=== PATIENT | female | born 1980 | race Caucasian/White ===

== ENCOUNTER 2016-06-07 23:07 | Emergency (ER) | payer MEDICAID ==
[~2016-06-07] VITALS: Ht 162.6 cm; Wt 49.9 kg
[~2016-06-07 23:07] MED LIST: CITA-73 PO; CLON1TAB3 PO; TOPI25TA32 PO
[2016-06-08] MEDS ORDERED: ONDANSETRON HCL 4 MG/2 ML VIAL IV ONE
[2016-06-08 00:07] LABS: DEFINITIVE VIEW TRANSMISSION; Hematocrit 42.2 % (36.0-46.0); Hemoglobin 13.9 g/dL (12.2-16.2); Mean Corpuscular Hemoglobin 31.8 pg (28.0-32.0); Mean Corpuscular Hgb Conc. 32.9 g/dL (32.0-36.0); Mean Corpuscular Volume 96.7 fL (80.0-100.0); Mean Platelet Volume 8.2 fL (7.4-10.4); Platelet Count (auto) 198 10^3/uL (140-450); Red Cell Distribution Width 12.4 % (11.6-16.0); SUSPECT VIEW TRANSMISSION; White Blood Cell 7.5 10^3/uL (4.4-10.8)
[2016-06-08 00:27] LABS: Metamyelocytes % 0; Myelocytes % 0; Promyelocytes % 0; Reactive Lymphocytes 0
[2016-06-08 00:30] LABS: Albumin 2.8 g/dL (3.4-5.0); BUN/Creatinine Ratio 13.3; Bilirubin, Total 0.3 mg/dL (0.2-1.0); Total Protein 5.7 g/dL (6.4-8.2)
[2016-06-08 00:40] LABS: Potassium 2.5 mmol/L (3.5-5.1)
[2016-06-08] MEDS ORDERED: POTASSIUM CHL 20 Meq TABLET PO ONE (00:45)
[2016-06-08] MEDS ORDERED: KETOROLAC TROMETH 30 MG/ML 1ML VIAL IV ONE (00:45)
[2016-06-08] MEDS ORDERED: SODIUM CHLORIDE 0.9% 1,000 ML IV ONE (00:45)
[2016-06-08 01:41] LABS: Urine Bilirubin Negative (Negative); Urine Blood TRACE /uL (Negative); Urine Color Yellow (Yellow); Urine Glucose Normal (Normal); Urine Ketone Negative (Negative); Urine Mucus FEW (None Seen); Urine Nitrite Negative (Negative); Urine RBC 7 /hpf (0 - 4); Urine Squamous Epithelial Cell FEW /hpf (<5); Urine Urobilinogen Normal (Negative); Urine pH 6.5 (5.0-8.0)
[2016-06-08 01:45] VITALS: BP 114/56
[2016-06-08 02:18] LABS: Platelet Estimate Adequate; RBC Morphology Normal
[2016-06-08] MEDS ORDERED: HYDROmorphone HCL 2 MG/ML VL IV ONE ×2 (02:45→03:15)
== END 2016-06-08 03:34 | disposition home or self-care (01) ==
LOC: EDBD 23:07 → ER 23:26
DX: N20.0 Calculus of kidney (principal); N39.0 Urinary tract infection, site not specified; E87.6 Hypokalemia; Z88.1 Allergy status to other antibiotic agents; Z88.6 Allergy status to analgesic agent; Z90.710 Acquired absence of both cervix and uterus
CPT/HCPCS: 36415; 74176; 80053; 81001; 82150; 83690; 84702; 85007; 85027; 96361; 96374; 96375; 99285; J1170; J1885; J2405

== ENCOUNTER 2016-07-19 16:37 | Inpatient (IN) | payer MEDICAID ==
[~2016-07-19] VITALS: Ht 162.6 cm; Wt 59.0 kg
[2016-07-19] MEDS ORDERED: LORazepam 2MG/ML-1ML VIAL ONE (16:43)
[2016-07-19] MEDS ORDERED: SODIUM CHLORIDE 0.9% 1,000 ML IVB ONE (16:54)
[2016-07-19] MEDS ORDERED: LEVETIRACETAM INJ 1,000 MG in SODIUM CHL 0.9% 100 ML IV ONE (17:00)
[2016-07-19] MEDS ORDERED: LORazepam 2MG/ML-1ML VIAL IV ONE ×2 (17:00→17:30)
[2016-07-19 17:26] LABS: Basophils # (auto) 0 uL; Basophils % (auto) 0.6 % (0.0-2.0); Eosinophils # (auto) 0.2 uL; Eosinophils % (auto) 3.8 % (0.0-7.0); Hematocrit 41.7 % (36.0-46.0); Hemoglobin 14.1 g/dL (12.2-16.2); Lymphocytes # (auto) 2.7 uL; Lymphocytes % (auto) 41.6 % (10.0-50.0); Mean Corpuscular Hemoglobin 31.4 pg (28.0-32.0); Mean Corpuscular Hgb Conc. 33.8 g/dL (32.0-36.0); Mean Corpuscular Volume 92.7 fL (80.0-100.0); Mean Platelet Volume 8.1 fL (7.4-10.4); Monocytes # (auto) 0.5 uL; Monocytes % (auto) 7.6 % (0.0-12.0); Neutrophils % (auto) 46.4 % (37.0-80.0); Platelet Count (auto) 392 10^3/uL (140-450); Red Cell Distribution Width 13.7 % (11.6-16.0); White Blood Cell 6.6 10^3/uL (4.4-10.8)
[2016-07-19] MEDS ORDERED: MORPHINE SULFATE 4 MG/ML SYRG IV ONE (17:30)
[2016-07-19 17:46] LABS: Albumin 3.3 g/dL (3.4-5.0); BUN/Creatinine Ratio 11.2
[2016-07-19 17:49] LABS: Bilirubin, Total 0.4 mg/dL (0.2-1.0); Total Protein 6.9 g/dL (6.4-8.2)
[2016-07-19 17:54] LABS: Potassium 2.5 mmol/L (3.5-5.1)
[2016-07-19] MEDS ORDERED: POTASSIUM CHL 20MEQ/100ML 100 ML IV ONE (19:00)
[2016-07-19 19:05] LABS: Urine Blood Negative /uL (Negative); Urine Glucose Normal (Normal); Urine Hyaline Cast FEW /lpf (0 - 2); Urine Ketone Negative (Negative); Urine Mucus FEW (None Seen); Urine RBC 6 /hpf (0 - 4); Urine Squamous Epithelial Cell MOD /hpf (<5)
[2016-07-19 19:14] LABS: Urine Bilirubin 2+ (Negative); Urine Nitrite POSITIVE (Negative)
[2016-07-19 19:15] LABS: Urine Color Orange (Yellow)
[2016-07-19] MEDS ORDERED: LORazepam 2MG/ML-1ML VIAL IM PRN (19:17)
[2016-07-19] MEDS ORDERED: LEVOFLOXACIN 500MG 100 ML IV ONE (22:00)
[2016-07-19] MEDS ORDERED: LORazepam 2MG/ML-1ML VIAL IV PRN (22:00)
[2016-07-19] MEDS ORDERED: ACETAMINOPHEN 325 MG TAB PO PRN (22:00)
[2016-07-19] MEDS ORDERED: TEMAZEPAM 15 MG CAP PO PRN (22:00)
[2016-07-19] MEDS: LEVETIRACETAM 500 MG TAB PO SCH (23:31)
[2016-07-19] MEDS: clonazePAM 0.5 MG TAB PO SCH (23:31)
[2016-07-19] MEDS: FAMOTIDINE 20 MG TAB PO SCH (23:31)
[2016-07-19 23:32] VITALS: BP 95/68
[2016-07-20] VITALS (8 sets, daily range): BP systolic 63–120; BP diastolic 35–73
[2016-07-20] MEDS ORDERED: POTASSIUM CHLORIDE 40 MEQ, LIDOCAINE 1% (LOCAL ANESTH.) 4 ML in SODIUM CHL 0.9% 250 ML IV ONE (10:00)
[2016-07-20] MEDS: clonazePAM 0.5 MG TAB PO SCH ×2 (10:50→21:21)
[2016-07-20] MEDS: FAMOTIDINE 20 MG TAB PO SCH ×2 (10:50→21:22)
[2016-07-20] MEDS: LEVETIRACETAM 500 MG TAB PO SCH ×2 (10:50→21:20)
[2016-07-20] MEDS: POTASSIUM CHL 20 Meq TABLET PO SCH ×2 (10:51→21:21)
[2016-07-20] MEDS: HYDROcodone-ACET 10/325MG TAB PO PRN ×2 (10:53→15:00)
[2016-07-20 11:13] LABS: BUN/Creatinine Ratio 10.8; Calcium 7.9 mg/dL (8.5-10.1); Magnesium 2.4 mg/dL (1.6-2.6)
[2016-07-20 11:29] LABS: Potassium 2.9 mmol/L (3.5-5.1)
[2016-07-20] MEDS: LEVOFLOXACIN 500MG 100 ML IV SCH (15:00)
[2016-07-20] MEDS ORDERED: diphenhdrAMINE HCL 50 MG/1 ML VL IV ONE (17:30)
[2016-07-20] MEDS: ACETAMINOPHEN/CODEINE#3 (300/30mg) TAB PO PRN (22:15)
[2016-07-21] VITALS (7 sets, daily range): BP systolic 68–89; BP diastolic 36–50
[2016-07-21 06:10] LABS: Hematocrit 34.2 % (36.0-46.0); Hemoglobin 11.6 g/dL (12.2-16.2); Mean Corpuscular Hemoglobin 31.8 pg (28.0-32.0); Mean Corpuscular Volume 93.5 fL (80.0-100.0); Mean Platelet Volume 8.2 fL (7.4-10.4); Platelet Count (auto) 341 10^3/uL (140-450); Red Cell Distribution Width 13.8 % (11.6-16.0); White Blood Cell 5.3 10^3/uL (4.4-10.8)
[2016-07-21 06:27] LABS: Metamyelocytes % 0; Myelocytes % 0; Promyelocytes % 0; Reactive Lymphocytes 0
[2016-07-21 06:59] LABS: Albumin 2.4 g/dL (3.4-5.0); BUN/Creatinine Ratio 8.9; Bilirubin, Total 0.4 mg/dL (0.2-1.0); Calcium 7.9 mg/dL (8.5-10.1); Magnesium 2.4 mg/dL (1.6-2.6); Potassium 3.7 mmol/L (3.5-5.1); Total Protein 5.3 g/dL (6.4-8.2)
[2016-07-21] MEDS: ACETAMINOPHEN/CODEINE#3 (300/30mg) TAB PO PRN (08:37)
[2016-07-21] MEDS ORDERED: SOD CHL 0.45% 1,000 ML IV SCH ×2 (09:15→09:30)
[2016-07-21] MEDS: FAMOTIDINE 20 MG TAB PO SCH ×2 (09:40→21:34)
[2016-07-21] MEDS: clonazePAM 0.5 MG TAB PO SCH ×2 (09:41→22:00)
[2016-07-21] MEDS: POTASSIUM CHL 20 Meq TABLET PO SCH ×2 (09:43→21:34)
[2016-07-21] MEDS: LEVETIRACETAM 500 MG TAB PO SCH ×2 (09:44→21:36)
[2016-07-21] MEDS: LEVOFLOXACIN 500MG 100 ML IV SCH (09:46)
[2016-07-21] MEDS: HYDROmorphone HCL 2 MG/ML VL IV PRN ×4 (10:44→23:31)
[2016-07-21 14:57] LABS: Prothrombin Time 11.9 sec (9.37-12.3)
[2016-07-21] MEDS: ONDANSETRON HCL 4 MG/2 ML VIAL IV PRN (15:12)
[2016-07-21 15:17] LABS: Platelet Estimate Adequate
[2016-07-21 15:18] LABS: INR 1.16 (0.9-1.15)
[2016-07-21] MEDS: SOD CHL 0.45% 500 ML IV SCH ×2 (15:52→15:54)
[2016-07-21] MEDS: SOD CHL 0.45% 1,000 ML IV SCH (23:31)
[2016-07-22] VITALS (7 sets, daily range): BP systolic 65–82; BP diastolic 36–51
[2016-07-22] MEDS: HYDROmorphone HCL 2 MG/ML VL IV PRN ×4 (04:23→22:08)
[2016-07-22 06:43] LABS: Calcium 7.5 mg/dL (8.5-10.1)
[2016-07-22 06:46] LABS: BUN/Creatinine Ratio 7.2
[2016-07-22] MEDS ORDERED: IOHEXOL 350 MG/ML 100ML IJ ONE (07:18)
[2016-07-22] MEDS ORDERED: LIDOCAINE 2%HCL (LOCAL ANESTH.) INJ 20ML MDV ONE (07:18)
[2016-07-22] MEDS ORDERED: fentaNYL CITRATE 100 MCG/2 ML VL ONE (09:36)
[2016-07-22] MEDS ORDERED: MIDAZOLAM HCL 1MG/1ML-2 ML VIAL ONE (09:36)
[2016-07-22] MEDS: LEVOFLOXACIN 500MG 100 ML IV SCH (10:45)
[2016-07-22] MEDS: ONDANSETRON HCL 4 MG/2 ML VIAL IV PRN ×2 (10:45→17:12)
[2016-07-22] MEDS: clonazePAM 0.5 MG TAB PO SCH ×2 (11:17→22:50)
[2016-07-22] MEDS: LEVETIRACETAM 500 MG TAB PO SCH ×2 (11:17→22:50)
[2016-07-22] MEDS: POTASSIUM CHL 20 Meq TABLET PO SCH ×2 (11:17→22:50)
[2016-07-22] MEDS: FAMOTIDINE 20 MG TAB PO SCH ×2 (11:18→22:50)
[2016-07-22] MEDS: SOD CHL 0.45% 1,000 ML IV SCH (11:18)
[2016-07-23] MEDS: ONDANSETRON HCL 4 MG/2 ML VIAL IV PRN ×2 (03:07→09:19)
[2016-07-23] MEDS: HYDROmorphone HCL 2 MG/ML VL IV PRN ×5 (03:07→21:47)
[2016-07-23] MEDS: SOD CHL 0.45% 1,000 ML IV SCH ×2 (04:06→18:24)
[2016-07-23 05:00] VITALS: BP 71/43
[2016-07-23 05:48] LABS: Basophils # (auto) 0 uL; Basophils % (auto) 0.2 % (0.0-2.0); Eosinophils # (auto) 0.2 uL; Eosinophils % (auto) 2.8 % (0.0-7.0); Hematocrit 35.7 % (36.0-46.0); Hemoglobin 11.9 g/dL (12.2-16.2); Lymphocytes # (auto) 3.1 uL; Mean Corpuscular Hemoglobin 31.4 pg (28.0-32.0); Mean Corpuscular Hgb Conc. 33.2 g/dL (32.0-36.0); Mean Corpuscular Volume 94.8 fL (80.0-100.0); Mean Platelet Volume 8.4 fL (7.4-10.4); Monocytes # (auto) 0.3 uL; Monocytes % (auto) 5.8 % (0.0-12.0); Neutrophils # (auto) 2.2 uL; Neutrophils % (auto) 37.2 % (37.0-80.0); Platelet Count (auto) 300 10^3/uL (140-450); Red Cell Distribution Width 14.1 % (11.6-16.0); White Blood Cell 5.8 10^3/uL (4.4-10.8)
[2016-07-23 06:03] LABS: Albumin 2.3 g/dL (3.4-5.0); BUN/Creatinine Ratio 5.1; Bilirubin, Total 0.3 mg/dL (0.2-1.0); Calcium 7.7 mg/dL (8.5-10.1); Potassium 4.4 mmol/L (3.5-5.1); Total Protein 4.9 g/dL (6.4-8.2)
[2016-07-23 08:00] VITALS: BP 70/42
[2016-07-23] MEDS: FAMOTIDINE 20 MG TAB PO SCH ×2 (09:14→21:46)
[2016-07-23] MEDS: LEVETIRACETAM 500 MG TAB PO SCH ×2 (09:14→21:47)
[2016-07-23] MEDS: POTASSIUM CHL 20 Meq TABLET PO SCH ×2 (09:14→21:47)
[2016-07-23] MEDS: LEVOFLOXACIN 500MG 100 ML IV SCH (09:15)
[2016-07-23 10:00] VITALS: BP 59/33
[2016-07-23] MEDS: clonazePAM 0.5 MG TAB PO SCH ×2 (10:00→21:46)
[2016-07-23 14:14] VITALS: BP 76/44
[2016-07-23 16:58] VITALS: BP 70/42
[2016-07-23 19:17] LABS: BUN/Creatinine Ratio 5.8; Calcium 7.3 mg/dL (8.5-10.1); Potassium 4.5 mmol/L (3.5-5.1)
[2016-07-23 22:00] VITALS: BP 80/44
[2016-07-24 05:00] VITALS: BP 88/42
[2016-07-24] MEDS: HYDROmorphone HCL 2 MG/ML VL IV PRN ×3 (05:12→13:02)
[2016-07-24 07:09] LABS: Basophils # (auto) 0 uL; Basophils % (auto) 0.4 % (0.0-2.0); Eosinophils # (auto) 0.2 uL; Eosinophils % (auto) 3.6 % (0.0-7.0); Hematocrit 36.7 % (36.0-46.0); Hemoglobin 12.2 g/dL (12.2-16.2); Lymphocytes % (auto) 54.6 % (10.0-50.0); Mean Corpuscular Hemoglobin 31.6 pg (28.0-32.0); Mean Corpuscular Hgb Conc. 33.3 g/dL (32.0-36.0); Mean Corpuscular Volume 95.1 fL (80.0-100.0); Mean Platelet Volume 8.2 fL (7.4-10.4); Monocytes # (auto) 0.4 uL; Monocytes % (auto) 6.7 % (0.0-12.0); Neutrophils # (auto) 1.9 uL; Neutrophils % (auto) 34.7 % (37.0-80.0); Platelet Count (auto) 291 10^3/uL (140-450); Red Cell Distribution Width 13.6 % (11.6-16.0); White Blood Cell 5.4 10^3/uL (4.4-10.8)
[2016-07-24 08:00] VITALS: BP 81/44
[2016-07-24 08:50] VITALS: BP 71/44
[2016-07-24] MEDS: POTASSIUM CHL 20 Meq TABLET PO SCH (09:04)
[2016-07-24] MEDS: ONDANSETRON HCL 4 MG/2 ML VIAL IV PRN ×2 (09:04→13:02)
[2016-07-24] MEDS: clonazePAM 0.5 MG TAB PO SCH (09:05)
[2016-07-24] MEDS: SOD CHL 0.45% 1,000 ML IV SCH (09:05)
[2016-07-24] MEDS: LEVOFLOXACIN 500MG 100 ML IV SCH (09:05)
[2016-07-24] MEDS: FAMOTIDINE 20 MG TAB PO SCH (09:05)
[2016-07-24] MEDS: LEVETIRACETAM 500 MG TAB PO SCH (09:05)
[2016-07-24 12:40] VITALS: BP 122/69
[2016-07-24 14:55] VITALS: BP 79/47
== END 2016-07-24 16:22 | disposition home or self-care (01) | DRG 53 ==
LOC: EDBD 16:37 → ER 16:37 → CENTRAL 16:38
PROVIDERS: ADMIT Internal Medicine; ATTEND Internal Medicine
PROC: 0T933ZZ Drainage of Right Kidney Pelvis, Percutaneous Approach (ICD-10-PCS; principal; 2016-07-22)
DX: G40.409 Other generalized epilepsy and epileptic syndromes, not intractable, without status epilepticus (principal); E87.0 Hyperosmolality and hypernatremia; N13.2 Hydronephrosis with renal and ureteral calculous obstruction; N39.0 Urinary tract infection, site not specified; E87.6 Hypokalemia; F41.8 Other specified anxiety disorders; F41.9 Anxiety disorder, unspecified; Z80.0 Family history of malignant neoplasm of digestive organs; Z82.49 Family history of ischemic heart disease and other diseases of the circulatory system; Z93.6 Other artificial openings of urinary tract status; F32.9 Major depressive disorder, single episode, unspecified; R63.4 Abnormal weight loss; Z68.22 Body mass index [BMI] 22.0-22.9, adult; Z87.442 Personal history of urinary calculi; Z90.710 Acquired absence of both cervix and uterus; Z96.653 Presence of artificial knee joint, bilateral; Z72.0 Tobacco use; Z81.8 Family history of other mental and behavioral disorders; Z83.42 Family history of familial hypercholesterolemia; Z88.1 Allergy status to other antibiotic agents; Z88.5 Allergy status to narcotic agent
CPT/HCPCS: 36415; 74176; 76000; 76775; 76942; 80048; 80053; 81001; 83735; 85007; 85025; 85027; 85610; 87081; 87086; 96361; 96365; 96366; 96375; 96376; C1729; G0434; J1956; J2001; J2250; J2405; J3480

== ENCOUNTER 2016-07-27 11:44 | Inpatient (IN) | payer MEDICAID ==
[~2016-07-27] VITALS: Ht 162.6 cm; Wt 49.6 kg
[2016-07-27] MEDS ORDERED: SODIUM CHLORIDE 0.9% 1,000 ML IVB ONE ×2 (12:08→12:50)
[2016-07-27] MEDS ORDERED: ONDANSETRON HCL 4 MG/2 ML VIAL IV ONE (12:15)
[2016-07-27 12:59] LABS: Basophils # (auto) 0 uL; Basophils % (auto) 0.1 % (0.0-2.0); Eosinophils # (auto) 0.1 uL; Eosinophils % (auto) 1.9 % (0.0-7.0); Hematocrit 36.9 % (36.0-46.0); Hemoglobin 12.1 g/dL (12.2-16.2); Lymphocytes # (auto) 1.8 uL; Lymphocytes % (auto) 37.3 % (10.0-50.0); Mean Corpuscular Hemoglobin 31.4 pg (28.0-32.0); Mean Corpuscular Hgb Conc. 32.9 g/dL (32.0-36.0); Mean Corpuscular Volume 95.2 fL (80.0-100.0); Mean Platelet Volume 8.8 fL (7.4-10.4); Monocytes # (auto) 0.3 uL; Monocytes % (auto) 6.6 % (0.0-12.0); Neutrophils # (auto) 2.6 uL; Neutrophils % (auto) 54.1 % (37.0-80.0); Platelet Count (auto) 267 10^3/uL (140-450); Red Cell Distribution Width 13.9 % (11.6-16.0); White Blood Cell 4.8 10^3/uL (4.4-10.8)
[2016-07-27] MEDS ORDERED: MORPHINE SULF INJ 2 MG/ML SYRINGE 1ML IV ONE (13:00)
[2016-07-27 13:38] LABS: Albumin 2.6 g/dL (3.4-5.0); BUN/Creatinine Ratio 9.5; Calcium 7.7 mg/dL (8.5-10.1); Potassium 3.2 mmol/L (3.5-5.1)
[2016-07-27] MEDS ORDERED: PROMETHAZINE HCL 25 MG/ML 1ML ONE (13:40)
[2016-07-27 13:41] LABS: Bilirubin, Total 0.2 mg/dL (0.2-1.0); Total Protein 5.7 g/dL (6.4-8.2)
[2016-07-27] MEDS ORDERED: PROMETHAZINE HCL 25 MG/ML 1ML IV ONE (13:45)
[2016-07-27 13:50] LABS: INR 1.07 (0.9-1.15); Partial Thromboplastin Time 29.4 sec (22.64-33.71)
[2016-07-27] MEDS ORDERED: SODIUM CHLORIDE 0.9% 2,000 ML IV ONE (14:45)
[2016-07-27] MEDS ORDERED: HYDROcodone-ACET 5/325MG TAB PO PRN (14:45)
[2016-07-27] MEDS ORDERED: LORazepam 0.5 MG TAB PO PRN (14:45)
[2016-07-27] MEDS ORDERED: MORPHINE SULF INJ 2 MG/ML SYRINGE 1ML IV PRN (14:45)
[2016-07-27] MEDS ORDERED: TEMAZEPAM 15 MG CAP PO PRN (14:45)
[2016-07-27] MEDS ORDERED: ACETAMINOPHEN 500 MG TAB PO PRN (14:45)
[2016-07-27] MEDS: SODIUM CHLORIDE 0.9% 1,000 ML IV SCH ×2 (14:45→22:09)
[2016-07-27] MEDS ORDERED: LEVOFLOXACIN 500MG 100 ML IV ONE (15:00)
[2016-07-27] MEDS ORDERED: MIRT15TA3 PO (15:11)
[2016-07-27] MEDS ORDERED: LEVE500T22 PO (15:12)
[2016-07-27] MEDS ORDERED: HYDROmorphone HCL 2 MG/ML VL ONE (16:00)
[2016-07-27] MEDS: HYDROmorphone HCL 2 MG/ML VL IV PRN ×2 (16:09→22:38)
[2016-07-27 16:12] LABS: Urine Bilirubin Negative (Negative); Urine Color Yellow (Yellow); Urine Glucose TRACE mg/dL (Normal); Urine Hyaline Cast FEW /lpf (0 - 2); Urine Ketone Negative (Negative); Urine Mucus FEW (None Seen); Urine Nitrite Negative (Negative); Urine RBC 79 /hpf (0 - 4); Urine Urobilinogen Normal (Negative); Urine pH 5.5 (5.0-8.0)
[2016-07-27 16:25] LABS: Urine Blood 3+ /uL (Negative)
[2016-07-27] MEDS ORDERED: SODIUM CHLORIDE 0.9% 1,000 ML IV ONE (17:00)
[2016-07-27] MEDS ORDERED: POTASSIUM CHL 20 Meq TABLET PO ONE (18:45)
[2016-07-27 20:00] VITALS: BP 94/52
[2016-07-27] MEDS: PROMETHAZINE HCL 25 MG/ML 1ML IV PRN (20:33)
[2016-07-27] MEDS: FAMOTIDINE 20 MG TAB PO SCH (22:09)
[2016-07-27] MEDS: clonazePAM 0.5 MG TAB PO SCH (22:33)
[2016-07-27] MEDS: MIRTAZAPINE 30 MG TAB PO SCH (22:33)
[2016-07-27] MEDS: LEVETIRACETAM 500 MG TAB PO SCH (22:34)
[2016-07-28] VITALS (7 sets, daily range): BP systolic 70–115; BP diastolic 42–51
[2016-07-28] MEDS: SODIUM CHLORIDE 0.9% 1,000 ML IV SCH ×2 (04:13→15:00)
[2016-07-28] MEDS ORDERED: ALBUMIN 5% 250 ML IV ONE (05:00)
[2016-07-28] MEDS: HYDROmorphone HCL 2 MG/ML VL IV PRN (05:17)
[2016-07-28 05:33] LABS: DEFINITIVE VIEW TRANSMISSION; Hematocrit 32.9 % (36.0-46.0); Hemoglobin 10.7 g/dL (12.2-16.2); Mean Corpuscular Hemoglobin 31.2 pg (28.0-32.0); Mean Corpuscular Hgb Conc. 32.5 g/dL (32.0-36.0); Mean Corpuscular Volume 95.8 fL (80.0-100.0); Mean Platelet Volume 9.2 fL (7.4-10.4); Platelet Count (auto) 216 10^3/uL (140-450); Red Cell Distribution Width 14.3 % (11.6-16.0); White Blood Cell 4.6 10^3/uL (4.4-10.8)
[2016-07-28 05:50] LABS: Metamyelocytes % 0; Myelocytes % 0; Promyelocytes % 0; Reactive Lymphocytes 0
[2016-07-28 06:11] LABS: Albumin 2.2 g/dL (3.4-5.0); BUN/Creatinine Ratio 6.8; Bilirubin, Total 0.4 mg/dL (0.2-1.0); Calcium 7.3 mg/dL (8.5-10.1); Potassium 3.6 mmol/L (3.5-5.1); Total Protein 4.8 g/dL (6.4-8.2)
[2016-07-28] MEDS: clonazePAM 0.5 MG TAB PO SCH ×3 (06:44→22:59)
[2016-07-28 06:47] LABS: Platelet Estimate Adequate; RBC Morphology Normal
[2016-07-28] MEDS: LEVOFLOXACIN 500MG 100 ML IV SCH (10:30)
[2016-07-28] MEDS: FAMOTIDINE 20 MG TAB PO SCH ×2 (10:30→23:02)
[2016-07-28] MEDS: LEVETIRACETAM 500 MG TAB PO SCH ×2 (10:31→22:59)
[2016-07-28] MEDS ORDERED: IOHEXOL 300 MG/ML 100ML BOTTLE IJ ONE (11:16)
[2016-07-28] MEDS ORDERED: LIDOCAINE 2%HCL (LOCAL ANESTH.) INJ 20ML MDV ONE (11:16)
[2016-07-28] MEDS ORDERED: FLUMAZENIL 0.1 MG/ML INJ 10ML MDV IV ONE (11:52)
[2016-07-28] MEDS ORDERED: NALOXONE HCL 1MG/ML 2ML SYRINGE ONE (11:53)
[2016-07-28] MEDS ORDERED: MIDAZOLAM HCL 1MG/1ML-2 ML VIAL ONE (11:53)
[2016-07-28] MEDS ORDERED: fentaNYL CITRATE 100 MCG/2 ML VL ONE (12:11)
[2016-07-28] MEDS: HYDROcodone-ACET 5/325MG TAB PO PRN ×2 (13:11→23:28)
[2016-07-28] MEDS: MIRTAZAPINE 30 MG TAB PO SCH (23:01)
[2016-07-28] MEDS: POTASSIUM CHL 20 Meq TABLET PO SCH (23:05)
[2016-07-29] VITALS (7 sets, daily range): BP systolic 72–81; BP diastolic 42–51
[2016-07-29] MEDS: SODIUM CHLORIDE 0.9% 1,000 ML IV SCH ×2 (06:03→10:00)
[2016-07-29] MEDS: clonazePAM 0.5 MG TAB PO SCH ×2 (06:41→14:00)
[2016-07-29 07:24] LABS: Hematocrit 33.3 % (36.0-46.0); Hemoglobin 11.3 g/dL (12.2-16.2); Mean Corpuscular Hgb Conc. 34.1 g/dL (32.0-36.0); Mean Corpuscular Volume 93.9 fL (80.0-100.0); Mean Platelet Volume 8.7 fL (7.4-10.4); Platelet Count (auto) 216 10^3/uL (140-450); Red Cell Distribution Width 13.7 % (11.6-16.0); White Blood Cell 4.4 10^3/uL (4.4-10.8)
[2016-07-29 07:38] LABS: Metamyelocytes % 0; Myelocytes % 0; Promyelocytes % 0; Reactive Lymphocytes 0
[2016-07-29 07:53] LABS: Albumin 2.3 g/dL (3.4-5.0); BUN/Creatinine Ratio 4.9; Bilirubin, Total 0.3 mg/dL (0.2-1.0); Calcium 7.5 mg/dL (8.5-10.1); Potassium 4.1 mmol/L (3.5-5.1); Total Protein 4.7 g/dL (6.4-8.2)
[2016-07-29 08:03] LABS: Platelet Estimate Adequate; RBC Morphology Normal
[2016-07-29] MEDS: LEVOFLOXACIN 500MG 100 ML IV SCH (09:48)
[2016-07-29] MEDS: LEVETIRACETAM 500 MG TAB PO SCH (09:48)
[2016-07-29] MEDS: POTASSIUM CHL 20 Meq TABLET PO SCH (09:49)
[2016-07-29] MEDS: FAMOTIDINE 20 MG TAB PO SCH (09:49)
[2016-07-29] MEDS: PROMETHAZINE HCL 25 MG/ML 1ML IV PRN (14:19)
[2016-07-29] MEDS: HYDROcodone-ACET 5/325MG TAB PO PRN (14:53)
== END 2016-07-29 17:45 | disposition home or self-care (01) | DRG 466 ==
LOC: EDBD 11:44 → EDSEX 11:44 → ER 11:45 → TELE 11:46 → DOU IN ICU 18:36
PROVIDERS: ADMIT Internal Medicine; ATTEND Internal Medicine
PROC: 0T25X0Z Change Drainage Device in Kidney, External Approach (ICD-10-PCS; principal; 2016-07-28)
DX: T83.032A Leakage of nephrostomy catheter, initial encounter (principal); I95.9 Hypotension, unspecified; F03.90 Unspecified dementia, unspecified severity, without behavioral disturbance, psychotic disturbance, mood disturbance, and anxiety; N13.39 Other hydronephrosis; Z93.6 Other artificial openings of urinary tract status; Y83.8 Other surgical procedures as the cause of abnormal reaction of the patient, or of later complication, without mention of misadventure at the time of the procedure; E87.6 Hypokalemia; F32.9 Major depressive disorder, single episode, unspecified; F41.9 Anxiety disorder, unspecified; G40.909 Epilepsy, unspecified, not intractable, without status epilepticus; I10 Essential (primary) hypertension; E78.5 Hyperlipidemia, unspecified; Z88.1 Allergy status to other antibiotic agents; Y92.89 Other specified places as the place of occurrence of the external cause; Z87.442 Personal history of urinary calculi; Z80.0 Family history of malignant neoplasm of digestive organs; Z82.49 Family history of ischemic heart disease and other diseases of the circulatory system; Z90.710 Acquired absence of both cervix and uterus
CPT/HCPCS: 36415; 71010; 74176; 75984; 76000; 76775; 80053; 81001; 82150; 83690; 83735; 85007; 85025; 85027; 85610; 85730; 87040; 87081; 87086; 87493; 94761; 96374; 96375; J1956; J2250; J2405

== ENCOUNTER 2016-08-03 14:15 | Emergency (ER) | payer MEDICAID ==
[~2016-08-03] VITALS: Ht 162.6 cm; Wt 45.4 kg
[~2016-08-03 14:15] MED LIST changes: -CITA-73 PO; +LEVE500T22 PO; +MIRT15TA3 PO; -TOPI25TA32 PO
[2016-08-03 14:27] VITALS: BP 101/71
== END 2016-08-04 00:15 | disposition left against medical advice (07) ==
LOC: ER 14:15
DX: T85.638A Leakage of other specified internal prosthetic devices, implants and grafts, initial encounter (principal); Z53.21 Procedure and treatment not carried out due to patient leaving prior to being seen by health care provider

== ENCOUNTER 2016-08-04 10:28 | Emergency (ER) | payer MEDICAID ==
[~2016-08-04] VITALS: Ht 162.6 cm; Wt 45.4 kg
[2016-08-04 11:11] LABS: Basophils # (auto) 0 uL; Basophils % (auto) 0.4 % (0.0-2.0); Eosinophils # (auto) 0.2 uL; Eosinophils % (auto) 3.8 % (0.0-7.0); Hematocrit 42.1 % (36.0-46.0); Lymphocytes # (auto) 2.6 uL; Lymphocytes % (auto) 41.6 % (10.0-50.0); Mean Corpuscular Hemoglobin 31.2 pg (28.0-32.0); Mean Corpuscular Hgb Conc. 33.2 g/dL (32.0-36.0); Mean Corpuscular Volume 94.1 fL (80.0-100.0); Mean Platelet Volume 8.4 fL (7.4-10.4); Monocytes # (auto) 0.3 uL; Monocytes % (auto) 5.4 % (0.0-12.0); Neutrophils % (auto) 48.8 % (37.0-80.0); Platelet Count (auto) 298 10^3/uL (140-450); Red Cell Distribution Width 14.3 % (11.6-16.0); White Blood Cell 6.1 10^3/uL (4.4-10.8)
[2016-08-04 11:31] LABS: Albumin 3.5 g/dL (3.4-5.0); BUN/Creatinine Ratio 14.4; Bilirubin, Total 0.3 mg/dL (0.2-1.0); Calcium 8.9 mg/dL (8.5-10.1); Potassium 3.2 mmol/L (3.5-5.1); Total Protein 7.2 g/dL (6.4-8.2)
[2016-08-04 11:55] LABS: Urine Bilirubin Negative (Negative); Urine Color PINK (Yellow); Urine Glucose Normal (Normal); Urine Ketone Negative (Negative); Urine Mucus FEW (None Seen); Urine Nitrite Negative (Negative); Urine RBC 1181 /hpf (0 - 4); Urine Squamous Epithelial Cell MANY /hpf (<5); Urine Urobilinogen Normal (Negative)
[2016-08-04 12:19] LABS: Urine Blood 3+ /uL (Negative)
[2016-08-04] MEDS ORDERED: HYDROmorphone HCL 2 MG/ML VL IV ONE (13:30)
[2016-08-04] MEDS ORDERED: ONDANSETRON HCL 4 MG/2 ML VIAL IV ONE (13:30)
[2016-08-04] MEDS ORDERED: SODIUM CHLORIDE 0.9% 1,000 ML IV ONE (13:30)
[2016-08-04] MEDS ORDERED: IOHEXOL 300 MG/ML 100ML BOTTLE IJ ONE (13:53)
[2016-08-04 18:58] VITALS: BP 98/65
== END 2016-08-04 19:01 | disposition home or self-care (01) ==
LOC: ER 10:31
DX: N39.0 Urinary tract infection, site not specified (principal); T83.03 Leakage of urinary catheter; F17.210 Nicotine dependence, cigarettes, uncomplicated; Z88.1 Allergy status to other antibiotic agents; Z79.899 Other long term (current) drug therapy
CPT/HCPCS: 36415; 80053; 81001; 85025; 96361; 96374; 96375; 99285; J1170; J2405; J7030; Q9967

== ENCOUNTER 2016-08-25 16:27 | Inpatient (IN) | payer MEDICAID ==
[~2016-08-25] VITALS: Ht 162.6 cm; Wt 56.2 kg
[2016-08-25] MEDS ORDERED: ONDANSETRON HCL 4 MG/2 ML VIAL IV ONE ×2 (17:30→20:30)
[2016-08-25] MEDS ORDERED: SODIUM CHLORIDE 0.9% 1,000 ML IV ONE ×2 (17:30→19:45)
[2016-08-25] MEDS ORDERED: HYDROmorphone HCL 2 MG/ML VL IV ONE ×2 (17:30→20:30)
[2016-08-25 18:41] LABS: Basophils # (auto) 0 uL; Basophils % (auto) 0.5 % (0.0-2.0); Eosinophils # (auto) 0.2 uL; Eosinophils % (auto) 2.3 % (0.0-7.0); Hematocrit 40.8 % (36.0-46.0); Hemoglobin 13.6 g/dL (12.2-16.2); Lymphocytes # (auto) 2.8 uL; Lymphocytes % (auto) 41.6 % (10.0-50.0); Mean Corpuscular Hemoglobin 31.7 pg (28.0-32.0); Mean Corpuscular Hgb Conc. 33.3 g/dL (32.0-36.0); Mean Corpuscular Volume 95.1 fL (80.0-100.0); Mean Platelet Volume 8.6 fL (7.4-10.4); Monocytes # (auto) 0.4 uL; Monocytes % (auto) 5.3 % (0.0-12.0); Neutrophils # (auto) 3.4 uL; Neutrophils % (auto) 50.3 % (37.0-80.0); Platelet Count (auto) 270 10^3/uL (140-450); Red Cell Distribution Width 14.2 % (11.6-16.0); White Blood Cell 6.7 10^3/uL (4.4-10.8)
[2016-08-25 18:45] LABS: Albumin 3.3 g/dL (3.4-5.0); BUN/Creatinine Ratio 14.2; Calcium 8.5 mg/dL (8.5-10.1); Potassium 3.1 mmol/L (3.5-5.1)
[2016-08-25 18:47] LABS: Bilirubin, Total 0.3 mg/dL (0.2-1.0); Total Protein 6.7 g/dL (6.4-8.2)
[2016-08-25 19:13] LABS: Urine Bilirubin Negative (Negative); Urine Blood Negative /uL (Negative); Urine Color Yellow (Yellow); Urine Glucose Normal (Normal); Urine Ketone TRACE (Negative); Urine Mucus FEW (None Seen); Urine Nitrite Negative (Negative); Urine RBC 1 /hpf (0 - 4); Urine Squamous Epithelial Cell FEW /hpf (<5)
[2016-08-25] MEDS ORDERED: POTASSIUM CHL 10% (20 MEQ/15ML) ORAL SOLN PO ONE (20:30)
[2016-08-25] MEDS ORDERED: MORPHINE SULF INJ 2 MG/ML SYRINGE 1ML IV PRN (21:00)
[2016-08-25] MEDS ORDERED: NITROGLYCERIN 0.4 MG SL TAB SL PRN (21:00)
[2016-08-25] MEDS ORDERED: POTASSIUM CHL 20MEQ/100ML 100 ML IV SCH (21:30)
[2016-08-25] MEDS: SODIUM CHLORIDE 0.9% 1,000 ML IV SCH (21:57)
[2016-08-25] MEDS: LEVETIRACETAM 500 MG TAB PO SCH (22:05)
[2016-08-25] MEDS: TOPIRAMATE 25 MG TAB PO SCH (22:05)
[2016-08-25] MEDS: clonazePAM 0.5 MG TAB PO SCH (22:05)
[2016-08-25 22:15] VITALS: BP 94/54
[2016-08-25] MEDS ORDERED: POTASSIUM CHLORIDE 40 MEQ, LIDOCAINE 1% (LOCAL ANESTH.) 4 ML in SODIUM CHL 0.9% 250 ML IV ONE (22:15)
[2016-08-25 22:20] VITALS: BP 94/54
[2016-08-25] MEDS ORDERED: MIRTAZAPINE 30 MG TAB PO ONE (23:15)
[2016-08-25] MEDS ORDERED: MIRT30TA PO (23:15)
[2016-08-25] MEDS ORDERED: TOPI25TA32 PO (23:15)
[2016-08-26] MEDS: HYDROmorphone HCL 2 MG/ML VL IV PRN ×4 (01:05→22:32)
[2016-08-26 05:00] VITALS: BP 74/45
[2016-08-26 06:06] LABS: Mean Corpuscular Hgb Conc. 33.3 g/dL (32.0-36.0); Platelet Count (auto) 207 10^3/uL (140-450)
[2016-08-26 06:21] LABS: Hematocrit 33.4 % (36.0-46.0); Hemoglobin 11.1 g/dL (12.2-16.2); Mean Corpuscular Hemoglobin 31.8 pg (28.0-32.0); Mean Corpuscular Volume 95.6 fL (80.0-100.0); Red Cell Distribution Width 14.3 % (11.6-16.0); White Blood Cell 7.5 10^3/uL (4.4-10.8)
[2016-08-26] MEDS: PARoxetine 20 MG TAB PO SCH (06:27)
[2016-08-26 06:28] LABS: Metamyelocytes % 0; Myelocytes % 0; Promyelocytes % 0; Reactive Lymphocytes 0
[2016-08-26] MEDS: clonazePAM 0.5 MG TAB PO SCH ×3 (06:28→22:31)
[2016-08-26 06:29] LABS: Potassium 3.4 mmol/L (3.5-5.1)
[2016-08-26 06:33] LABS: Albumin 2.5 g/dL (3.4-5.0); BUN/Creatinine Ratio 14.3
[2016-08-26 06:54] LABS: Bilirubin, Total 0.1 mg/dL (0.2-1.0); Total Protein 4.9 g/dL (6.4-8.2)
[2016-08-26 06:55] LABS: Hypersegmented Neutrophils Present
[2016-08-26 06:56] LABS: Platelet Estimate Adequate; RBC Morphology Normal
[2016-08-26 09:00] VITALS: BP 84/42
[2016-08-26] MEDS ORDERED: LEVOFLOXACIN 500MG 100 ML IV SCH (10:00)
[2016-08-26] MEDS: LEVETIRACETAM 500 MG TAB PO SCH ×2 (10:15→22:30)
[2016-08-26] MEDS: TOPIRAMATE 25 MG TAB PO SCH ×2 (10:15→22:31)
[2016-08-26] MEDS: SODIUM CHLORIDE 0.9% 1,000 ML IV SCH (11:26)
[2016-08-26] MEDS: metroNIDAZOLE 500 MG TAB PO SCH ×3 (11:40→23:35)
[2016-08-26 13:00] VITALS: BP 80/50
[2016-08-26 16:42] VITALS: BP 79/44
[2016-08-26] MEDS: ONDANSETRON HCL 4 MG/2 ML VIAL IV PRN (17:29)
[2016-08-26] MEDS: BOOST 8 ounces PO SCH (17:52)
[2016-08-26] MEDS ORDERED: MIRTAZAPINE 30 MG TAB PO SCH (18:00)
[2016-08-26 22:00] VITALS: BP 83/45
[2016-08-26] MEDS: MIRTAZAPINE 30 MG TAB PO SCH (22:31)
[2016-08-27] VITALS (7 sets, daily range): BP systolic 63–84; BP diastolic 34–50
[2016-08-27] MEDS: SODIUM CHLORIDE 0.9% 1,000 ML IV SCH ×2 (03:40→16:01)
[2016-08-27] MEDS: HYDROmorphone HCL 2 MG/ML VL IV PRN ×4 (03:40→20:03)
[2016-08-27] MEDS: metroNIDAZOLE 500 MG TAB PO SCH ×3 (05:59→17:53)
[2016-08-27] MEDS: PARoxetine 20 MG TAB PO SCH (05:59)
[2016-08-27] MEDS: clonazePAM 0.5 MG TAB PO SCH ×3 (05:59→21:56)
[2016-08-27 06:38] LABS: Hematocrit 33.8 % (36.0-46.0); Hemoglobin 11.6 g/dL (12.2-16.2); Mean Corpuscular Hemoglobin 33.2 pg (28.0-32.0); Mean Corpuscular Hgb Conc. 34.5 g/dL (32.0-36.0); Mean Corpuscular Volume 96.1 fL (80.0-100.0); Mean Platelet Volume 9.1 fL (7.4-10.4); Platelet Count (auto) 196 10^3/uL (140-450); Red Cell Distribution Width 14.3 % (11.6-16.0)
[2016-08-27 06:42] LABS: Metamyelocytes % 0; Myelocytes % 0; Promyelocytes % 0; Reactive Lymphocytes 0
[2016-08-27 06:59] LABS: Potassium 3.5 mmol/L (3.5-5.1)
[2016-08-27 07:03] LABS: Albumin 2.3 g/dL (3.4-5.0); BUN/Creatinine Ratio 9.6; Calcium 7.1 mg/dL (8.5-10.1)
[2016-08-27 07:06] LABS: Bilirubin, Total 0.2 mg/dL (0.2-1.0); Total Protein 4.5 g/dL (6.4-8.2)
[2016-08-27 07:37] LABS: Platelet Estimate Adequate
[2016-08-27] MEDS: TOPIRAMATE 25 MG TAB PO SCH ×2 (09:37→21:58)
[2016-08-27] MEDS: LEVETIRACETAM 500 MG TAB PO SCH ×2 (09:37→21:56)
[2016-08-27] MEDS: BOOST 8 ounces PO SCH ×3 (10:49→17:53)
[2016-08-27] MEDS: VANCOMYCIN HCL 125MG/5ML ORAL SOL GT SCH ×2 (12:15→17:53)
[2016-08-27] MEDS: MIRTAZAPINE 30 MG TAB PO SCH (21:58)
[2016-08-28] VITALS (8 sets, daily range): BP systolic 69–113; BP diastolic 39–52
[2016-08-28] MEDS: VANCOMYCIN HCL 125MG/5ML ORAL SOL GT SCH ×5 (00:12→23:40)
[2016-08-28] MEDS: metroNIDAZOLE 500 MG TAB PO SCH ×5 (00:12→23:39)
[2016-08-28 05:47] LABS: BUN/Creatinine Ratio 5.4; Calcium 7.2 mg/dL (8.5-10.1); Potassium 3.7 mmol/L (3.5-5.1)
[2016-08-28 05:51] LABS: Basophils # (auto) 0 uL; Basophils % (auto) 0.3 % (0.0-2.0); Eosinophils # (auto) 0.4 uL; Eosinophils % (auto) 6.5 % (0.0-7.0); Hemoglobin 11.3 g/dL (12.2-16.2); Lymphocytes # (auto) 2.8 uL; Lymphocytes % (auto) 52.2 % (10.0-50.0); Mean Corpuscular Hemoglobin 32.1 pg (28.0-32.0); Mean Corpuscular Hgb Conc. 33.2 g/dL (32.0-36.0); Mean Corpuscular Volume 96.8 fL (80.0-100.0); Monocytes # (auto) 0.3 uL; Monocytes % (auto) 6.1 % (0.0-12.0); Neutrophils # (auto) 1.9 uL; Neutrophils % (auto) 34.9 % (37.0-80.0); Platelet Count (auto) 201 10^3/uL (140-450); Red Cell Distribution Width 13.9 % (11.6-16.0); White Blood Cell 5.4 10^3/uL (4.4-10.8)
[2016-08-28] MEDS: clonazePAM 0.5 MG TAB PO SCH ×3 (06:07→22:31)
[2016-08-28] MEDS: SODIUM CHLORIDE 0.9% 1,000 ML IV SCH (06:11)
[2016-08-28] MEDS: HYDROmorphone HCL 2 MG/ML VL IV PRN ×4 (06:41→21:12)
[2016-08-28] MEDS: PARoxetine 20 MG TAB PO SCH (06:41)
[2016-08-28] MEDS: BOOST 8 ounces PO SCH ×3 (08:10→18:19)
[2016-08-28] MEDS: ONDANSETRON HCL 4 MG/2 ML VIAL IV PRN ×2 (09:44→21:12)
[2016-08-28] MEDS: LEVETIRACETAM 500 MG TAB PO SCH ×2 (09:44→22:33)
[2016-08-28] MEDS: TOPIRAMATE 25 MG TAB PO SCH ×2 (09:44→22:32)
[2016-08-28] MEDS: SOD CHL 0.45% 1,000 ML IV SCH ×2 (16:53→23:39)
[2016-08-28] MEDS: MIRTAZAPINE 30 MG TAB PO SCH (22:32)
[2016-08-29] MEDS: HYDROmorphone HCL 2 MG/ML VL IV PRN ×5 (01:09→22:23)
[2016-08-29 05:01] VITALS: BP 71/40
[2016-08-29] MEDS: metroNIDAZOLE 500 MG TAB PO SCH ×2 (05:42→11:41)
[2016-08-29] MEDS: clonazePAM 0.5 MG TAB PO SCH ×3 (05:42→22:07)
[2016-08-29] MEDS: VANCOMYCIN HCL 125MG/5ML ORAL SOL GT SCH ×2 (05:43→11:42)
[2016-08-29 05:58] LABS: Basophils # (auto) 0 uL; Basophils % (auto) 0.6 % (0.0-2.0); Eosinophils # (auto) 0.3 uL; Eosinophils % (auto) 6.1 % (0.0-7.0); Hematocrit 35.2 % (36.0-46.0); Hemoglobin 11.5 g/dL (12.2-16.2); Lymphocytes % (auto) 54.8 % (10.0-50.0); Mean Corpuscular Hemoglobin 31.8 pg (28.0-32.0); Mean Corpuscular Hgb Conc. 32.8 g/dL (32.0-36.0); Mean Corpuscular Volume 97.1 fL (80.0-100.0); Mean Platelet Volume 8.9 fL (7.4-10.4); Monocytes # (auto) 0.3 uL; Monocytes % (auto) 5.1 % (0.0-12.0); Neutrophils # (auto) 1.8 uL; Neutrophils % (auto) 33.4 % (37.0-80.0); Platelet Count (auto) 213 10^3/uL (140-450); Red Cell Distribution Width 14.4 % (11.6-16.0); White Blood Cell 5.5 10^3/uL (4.4-10.8)
[2016-08-29 06:10] LABS: Albumin 2.1 g/dL (3.4-5.0); BUN/Creatinine Ratio 3.9; Calcium 7.1 mg/dL (8.5-10.1); Potassium 3.5 mmol/L (3.5-5.1)
[2016-08-29 06:18] LABS: Bilirubin, Total 0.1 mg/dL (0.2-1.0); Total Protein 4.2 g/dL (6.4-8.2)
[2016-08-29] MEDS: PARoxetine 20 MG TAB PO SCH (06:34)
[2016-08-29 08:00] VITALS: BP 82/44
[2016-08-29] MEDS: BOOST 8 ounces PO SCH ×3 (08:00→18:00)
[2016-08-29] MEDS: ONDANSETRON HCL 4 MG/2 ML VIAL IV PRN ×3 (08:05→22:23)
[2016-08-29 08:12] VITALS: BP 82/44
[2016-08-29] MEDS: SOD CHL 0.45% 1,000 ML IV SCH ×2 (08:15→16:15)
[2016-08-29] MEDS: LEVETIRACETAM 500 MG TAB PO SCH ×2 (09:21→22:07)
[2016-08-29] MEDS: TOPIRAMATE 25 MG TAB PO SCH ×2 (09:22→22:07)
[2016-08-29 12:20] VITALS: BP 69/37
[2016-08-29 16:54] VITALS: BP 77/43
[2016-08-29 21:46] VITALS: BP 74/42
[2016-08-29] MEDS: PANTOPRAZOLE 40 MG TAB PO SCH (22:08)
[2016-08-29] MEDS: MIRTAZAPINE 30 MG TAB PO SCH (22:08)
[2016-08-30] MEDS: SOD CHL 0.45% 1,000 ML IV SCH ×3 (00:13→16:34)
[2016-08-30 04:37] VITALS: BP 78/50
[2016-08-30] MEDS: HYDROmorphone HCL 2 MG/ML VL IV PRN ×5 (05:26→21:18)
[2016-08-30] MEDS: PARoxetine 20 MG TAB PO SCH (06:01)
[2016-08-30] MEDS: clonazePAM 0.5 MG TAB PO SCH ×3 (06:01→21:43)
[2016-08-30 06:40] LABS: Basophils # (auto) 0 uL; Basophils % (auto) 0.5 % (0.0-2.0); Eosinophils # (auto) 0.3 uL; Eosinophils % (auto) 4.6 % (0.0-7.0); Hematocrit 35.4 % (36.0-46.0); Hemoglobin 11.8 g/dL (12.2-16.2); Lymphocytes # (auto) 2.6 uL; Lymphocytes % (auto) 46.4 % (10.0-50.0); Mean Corpuscular Hemoglobin 31.8 pg (28.0-32.0); Mean Corpuscular Hgb Conc. 33.3 g/dL (32.0-36.0); Mean Corpuscular Volume 95.6 fL (80.0-100.0); Mean Platelet Volume 8.9 fL (7.4-10.4); Monocytes # (auto) 0.3 uL; Monocytes % (auto) 5.1 % (0.0-12.0); Neutrophils # (auto) 2.4 uL; Neutrophils % (auto) 43.4 % (37.0-80.0); Platelet Count (auto) 216 10^3/uL (140-450); Red Cell Distribution Width 13.9 % (11.6-16.0); White Blood Cell 5.6 10^3/uL (4.4-10.8)
[2016-08-30 06:50] LABS: Albumin 2.1 g/dL (3.4-5.0); Calcium 7.4 mg/dL (8.5-10.1); Potassium 3.5 mmol/L (3.5-5.1)
[2016-08-30 06:53] LABS: BUN/Creatinine Ratio 4.3
[2016-08-30 06:55] LABS: Bilirubin, Total 0.2 mg/dL (0.2-1.0); Total Protein 4.2 g/dL (6.4-8.2)
[2016-08-30 08:00] VITALS: BP 82/94
[2016-08-30] MEDS: BOOST 8 ounces PO SCH ×3 (08:00→17:48)
[2016-08-30] MEDS: PANTOPRAZOLE 40 MG TAB PO SCH (08:28)
[2016-08-30 08:55] VITALS: BP 85/53
[2016-08-30] MEDS: TOPIRAMATE 25 MG TAB PO SCH ×2 (09:14→21:44)
[2016-08-30] MEDS: LEVETIRACETAM 500 MG TAB PO SCH ×2 (09:14→21:43)
[2016-08-30] MEDS ORDERED: FECAL MICROBIOTA TRANSPLANTATION 30mL SUSPENSION NG ONE (10:00)
[2016-08-30] MEDS: ONDANSETRON HCL 4 MG/2 ML VIAL IV PRN ×2 (10:47→21:26)
[2016-08-30 13:00] VITALS: BP 79/42
[2016-08-30 17:00] VITALS: BP 75/43
[2016-08-30] MEDS: PRO-STAT 64 30ML PO SCH (17:48)
[2016-08-30] MEDS: MIRTAZAPINE 30 MG TAB PO SCH (21:44)
[2016-08-30 22:01] VITALS: BP 99/50
[2016-08-31] VITALS (7 sets, daily range): BP systolic 68–90; BP diastolic 36–59
[2016-08-31] MEDS: SOD CHL 0.45% 1,000 ML IV SCH ×4 (00:27→20:44)
[2016-08-31] MEDS: HYDROmorphone HCL 2 MG/ML VL IV PRN ×3 (05:02→17:54)
[2016-08-31 05:47] LABS: Calcium 7.7 mg/dL (8.5-10.1); Potassium 3.5 mmol/L (3.5-5.1)
[2016-08-31 05:50] LABS: BUN/Creatinine Ratio 3.9
[2016-08-31] MEDS: clonazePAM 0.5 MG TAB PO SCH ×3 (06:25→21:26)
[2016-08-31] MEDS: PARoxetine 20 MG TAB PO SCH (06:25)
[2016-08-31] MEDS: BOOST 8 ounces PO SCH ×3 (08:00→18:25)
[2016-08-31] MEDS: PRO-STAT 64 30ML PO SCH ×2 (08:00→18:24)
[2016-08-31] MEDS: TOPIRAMATE 25 MG TAB PO SCH ×2 (09:11→21:27)
[2016-08-31] MEDS: LEVETIRACETAM 500 MG TAB PO SCH ×2 (09:17→21:25)
[2016-08-31] MEDS: ONDANSETRON HCL 4 MG/2 ML VIAL IV PRN (16:20)
[2016-08-31] MEDS: MIRTAZAPINE 30 MG TAB PO SCH (21:31)
[2016-09-01] MEDS: HYDROmorphone HCL 2 MG/ML VL IV PRN ×3 (03:20→12:39)
[2016-09-01] MEDS: ONDANSETRON HCL 4 MG/2 ML VIAL IV PRN (03:21)
[2016-09-01] MEDS: SOD CHL 0.45% 1,000 ML IV SCH (05:13)
[2016-09-01 06:03] LABS: Hematocrit 35.2 % (36.0-46.0); Hemoglobin 11.5 g/dL (12.2-16.2); Mean Corpuscular Hemoglobin 31.5 pg (28.0-32.0); Mean Corpuscular Hgb Conc. 32.6 g/dL (32.0-36.0); Mean Corpuscular Volume 96.6 fL (80.0-100.0); Mean Platelet Volume 9.2 fL (7.4-10.4); Platelet Count (auto) 220 10^3/uL (140-450); Red Cell Distribution Width 14.7 % (11.6-16.0); White Blood Cell 4.8 10^3/uL (4.4-10.8)
[2016-09-01] MEDS: clonazePAM 0.5 MG TAB PO SCH (06:04)
[2016-09-01] MEDS: PARoxetine 20 MG TAB PO SCH (06:04)
[2016-09-01 06:12] LABS: Metamyelocytes % 0; Myelocytes % 0; Promyelocytes % 0; Reactive Lymphocytes 0
[2016-09-01 06:25] LABS: Albumin 2.2 g/dL (3.4-5.0); BUN/Creatinine Ratio 4.2; Calcium 7.7 mg/dL (8.5-10.1); Potassium 3.6 mmol/L (3.5-5.1)
[2016-09-01 06:28] LABS: Bilirubin, Total 0.2 mg/dL (0.2-1.0); Total Protein 4.4 g/dL (6.4-8.2)
[2016-09-01 06:48] LABS: Platelet Estimate Adequate; RBC Morphology Normal
[2016-09-01 08:00] VITALS: BP 90/49
[2016-09-01] MEDS: PRO-STAT 64 30ML PO SCH (08:37)
[2016-09-01] MEDS: BOOST 8 ounces PO SCH ×2 (08:37→12:25)
[2016-09-01 09:00] VITALS: BP 90/49
[2016-09-01] MEDS: LEVETIRACETAM 500 MG TAB PO SCH (09:36)
[2016-09-01] MEDS: TOPIRAMATE 25 MG TAB PO SCH (09:36)
[2016-09-01 11:50] VITALS: BP 78/40
== END 2016-09-01 13:10 | disposition home or self-care (01) | DRG 248 ==
LOC: ER 16:29 → TELE-WESTW 16:30
PROVIDERS: ADMIT Internal Medicine; ATTEND Internal Medicine
DX: A04.7 Enterocolitis due to Clostridium difficile (principal); E43 Unspecified severe protein-calorie malnutrition; F03.90 Unspecified dementia, unspecified severity, without behavioral disturbance, psychotic disturbance, mood disturbance, and anxiety; E87.6 Hypokalemia; F32.9 Major depressive disorder, single episode, unspecified; E86.0 Dehydration; F17.210 Nicotine dependence, cigarettes, uncomplicated; F41.9 Anxiety disorder, unspecified; G40.909 Epilepsy, unspecified, not intractable, without status epilepticus; Z80.0 Family history of malignant neoplasm of digestive organs; Z87.442 Personal history of urinary calculi; Z90.5 Acquired absence of kidney; Z68.21 Body mass index [BMI] 21.0-21.9, adult; Z90.710 Acquired absence of both cervix and uterus; Z88.1 Allergy status to other antibiotic agents
CPT/HCPCS: 36415; 71020; 74176; 80048; 80053; 81001; 84702; 85007; 85025; 85027; 87040; 87081; 87086; 87493; 96361; 96374; 96375; 96376; 99291; J1956; J2001; J2405

== ENCOUNTER 2016-10-19 13:50 | Inpatient (IN) | payer MEDICAID ==
[~2016-10-19] VITALS: Ht 160 cm; Wt 55.2 kg
[~2016-10-19 13:50] MED LIST changes: -LEVE500T22 PO; -MIRT15TA3 PO; +MIRT30TA PO; +TOPI25TA32 PO
[2016-10-19 14:23] LABS: Basophils # (auto) 0 uL; Basophils % (auto) 0.4 % (0.0-2.0); Eosinophils # (auto) 0.1 uL; Eosinophils % (auto) 1.6 % (0.0-7.0); Hematocrit 43.8 % (36.0-46.0); Hemoglobin 14.9 g/dL (12.2-16.2); Lymphocytes # (auto) 3.8 uL; Lymphocytes % (auto) 50.7 % (10.0-50.0); Mean Corpuscular Hemoglobin 32.4 pg (28.0-32.0); Mean Corpuscular Volume 95.2 fL (80.0-100.0); Mean Platelet Volume 8.1 fL (7.4-10.4); Monocytes # (auto) 0.5 uL; Neutrophils # (auto) 3.1 uL; Neutrophils % (auto) 41.3 % (37.0-80.0); Platelet Count (auto) 335 10^3/uL (140-450); Red Cell Distribution Width 14.4 % (11.6-16.0); White Blood Cell 7.6 10^3/uL (4.4-10.8)
[2016-10-19 14:33] LABS: Urine Bilirubin Negative (Negative); Urine Blood Negative /uL (Negative); Urine Ca Oxalate Crystal MOD (None Seen); Urine Color Yellow (Yellow); Urine Glucose Normal (Normal); Urine Ketone Negative (Negative); Urine Mucus FEW (None Seen); Urine Nitrite Negative (Negative); Urine RBC 1 /hpf (0 - 4); Urine Squamous Epithelial Cell MOD /hpf (<5); Urine Urobilinogen Normal (Negative)
[2016-10-19 14:49] LABS: Albumin 3.5 g/dL (3.4-5.0); BUN/Creatinine Ratio 14.3; Bilirubin, Total 0.4 mg/dL (0.2-1.0); Total Protein 6.8 g/dL (6.4-8.2)
[2016-10-19 15:11] LABS: Potassium 2.6 mmol/L (3.5-5.1)
[2016-10-19] MEDS ORDERED: POTASSIUM CHL 20 Meq TABLET PO ONE ×2 (15:30→18:00)
[2016-10-19] MEDS ORDERED: SODIUM CHLORIDE 0.9% 1,000 ML IVB ONE (16:04)
[2016-10-19] MEDS ORDERED: ONDANSETRON HCL 4 MG/2 ML VIAL IV ONE ×3 (16:15→17:45)
[2016-10-19] MEDS ORDERED: KETOROLAC TROMETH 30 MG/ML 1ML VIAL IV ONE (16:15)
[2016-10-19] MEDS ORDERED: SODIUM CHLORIDE 0.9% 1,000 ML IV ONE (16:15)
[2016-10-19 16:25] LABS: Magnesium 2.4 mg/dL (1.6-2.6)
[2016-10-19] MEDS: POTASSIUM CHL 20MEQ/100ML 100 ML IV SCH ×2 (16:35→18:15)
[2016-10-19 16:46] LABS: INR 0.99 (0.9-1.15); Partial Thromboplastin Time 26.7 sec (22.64-33.71); Prothrombin Time 10.8 sec (9.37-12.3)
[2016-10-19] MEDS ORDERED: MORPHINE SULF INJ 2 MG/ML SYRINGE 1ML IV ONE (17:45)
[2016-10-19] MEDS ORDERED: metroNIDAZOLE 500MG/100ML 100 ML IV ONE (17:45)
[2016-10-19] MEDS ORDERED: ACETAMINOPHEN 500 MG TAB PO PRN (18:00)
[2016-10-19] MEDS ORDERED: MORPHINE SULF INJ 2 MG/ML SYRINGE 1ML IV PRN (18:00)
[2016-10-19] MEDS ORDERED: NITROGLYCERIN 0.4 MG SL TAB SL PRN (18:00)
[2016-10-19] MEDS ORDERED: LEVOFLOXACIN 500MG 100 ML IV ONE (18:00)
[2016-10-19] MEDS ORDERED: POTASSIUM CHL 20MEQ/100ML 100 ML IV SCH (18:00)
[2016-10-19] MEDS ORDERED: LORazepam 0.5 MG TAB PO PRN (18:00)
[2016-10-19] MEDS ORDERED: TEMAZEPAM 15 MG CAP PO PRN (18:00)
[2016-10-19] MEDS: SOD CHL 0.9%/ KCL 40MEQ 1,000 ML IV SCH (19:03)
[2016-10-19] MEDS: FAMOTIDINE (10MG/ML) 2ML VL IV SCH (19:03)
[2016-10-19] MEDS: MORPHINE SULF INJ 2 MG/ML SYRINGE 1ML IV PRN (20:23)
[2016-10-19 21:30] VITALS: BP 84/47
[2016-10-19] MEDS: TOPIRAMATE 25 MG TAB PO SCH (22:45)
[2016-10-19] MEDS: clonazePAM 0.5 MG TAB PO SCH (22:45)
[2016-10-19] MEDS: MIRTAZAPINE 30 MG TAB PO SCH (22:45)
[2016-10-20] MEDS: metroNIDAZOLE 500MG/100ML 100 ML IV SCH ×4 (00:04→17:52)
[2016-10-20] MEDS: PROMETHAZINE HCL 25 MG/ML 1ML IV PRN (00:39)
[2016-10-20] MEDS: MORPHINE SULF INJ 2 MG/ML SYRINGE 1ML IV PRN (00:40)
[2016-10-20] MEDS ORDERED: LEVE500T22 PO (00:53)
[2016-10-20] MEDS: SOD CHL 0.9%/ KCL 40MEQ 1,000 ML IV SCH ×3 (02:19→18:35)
[2016-10-20 05:00] VITALS: BP 69/43
[2016-10-20] MEDS: clonazePAM 0.5 MG TAB PO SCH ×3 (05:45→21:55)
[2016-10-20] MEDS: FAMOTIDINE (10MG/ML) 2ML VL IV SCH ×2 (05:46→17:52)
[2016-10-20 09:00] VITALS: BP 70/41
[2016-10-20] MEDS: LEVETIRACETAM 500 MG TAB PO SCH (11:09)
[2016-10-20] MEDS: TOPIRAMATE 25 MG TAB PO SCH ×2 (11:09→21:55)
[2016-10-20] MEDS: LEVOFLOXACIN 500MG 100 ML IV SCH (11:11)
[2016-10-20] MEDS: HYDROcodone-ACET 5/325MG TAB PO PRN (11:28)
[2016-10-20 13:00] VITALS: BP 96/41
[2016-10-20 17:00] VITALS: BP 85/45
[2016-10-20 20:20] VITALS: BP 73/43
[2016-10-20] MEDS ORDERED: SODIUM CHLORIDE 0.9% 1,000 ML IV ONE (21:15)
[2016-10-20] MEDS: MIRTAZAPINE 30 MG TAB PO SCH (21:55)
[2016-10-20 22:00] VITALS: BP 73/43
[2016-10-21] MEDS: SOD CHL 0.9%/ KCL 40MEQ 1,000 ML IV SCH ×2 (00:42→12:00)
[2016-10-21 05:00] VITALS: BP 82/51
[2016-10-21] MEDS: clonazePAM 0.5 MG TAB PO SCH ×2 (06:00→14:00)
[2016-10-21 06:22] LABS: CONDITION AutoValidated; Hematocrit 36.1 % (36.0-46.0); Hemoglobin 12.2 g/dL (12.2-16.2); Mean Corpuscular Hemoglobin 32.4 pg (28.0-32.0); Mean Corpuscular Hgb Conc. 33.8 g/dL (32.0-36.0); Mean Platelet Volume 8.1 fL (7.4-10.4); Platelet Count (auto) 240 10^3/uL (140-450); Red Cell Distribution Width 14.1 % (11.6-16.0); White Blood Cell 5.3 10^3/uL (4.4-10.8)
[2016-10-21] MEDS: metroNIDAZOLE 500MG/100ML 100 ML IV SCH ×3 (06:23→11:59)
[2016-10-21] MEDS: FAMOTIDINE (10MG/ML) 2ML VL IV SCH (06:23)
[2016-10-21 06:26] LABS: Metamyelocytes % 0; Myelocytes % 0; Promyelocytes % 0; Reactive Lymphocytes 0
[2016-10-21 06:44] LABS: Albumin 2.1 g/dL (3.4-5.0); Calcium 6.9 mg/dL (8.5-10.1); Potassium 4.6 mmol/L (3.5-5.1)
[2016-10-21 06:46] LABS: BUN/Creatinine Ratio 11.1
[2016-10-21 06:48] LABS: Bilirubin, Total 0.2 mg/dL (0.2-1.0); Total Protein 4.3 g/dL (6.4-8.2)
[2016-10-21 07:17] LABS: Platelet Estimate Adequate
[2016-10-21 08:00] VITALS: BP 81/49
[2016-10-21 09:00] VITALS: BP 81/49
[2016-10-21] MEDS: LEVOFLOXACIN 500MG 100 ML IV SCH (10:19)
[2016-10-21] MEDS: TOPIRAMATE 25 MG TAB PO SCH (10:19)
[2016-10-21] MEDS: LEVETIRACETAM 500 MG TAB PO SCH (10:19)
[2016-10-21] MEDS: PROMETHAZINE HCL 25 MG/ML 1ML IV PRN (10:19)
[2016-10-21] MEDS: HYDROcodone-ACET 5/325MG TAB PO PRN (12:38)
[2016-10-21 13:00] VITALS: BP 90/57
== END 2016-10-21 16:35 | disposition home or self-care (01) | DRG 249 ==
LOC: ER 13:50 → TELE 13:51 → TELE-CENTR 21:30
PROVIDERS: ADMIT Internal Medicine; ATTEND Internal Medicine
DX: K52.9 Noninfective gastroenteritis and colitis, unspecified (principal); E43 Unspecified severe protein-calorie malnutrition; F32.9 Major depressive disorder, single episode, unspecified; E87.6 Hypokalemia; F41.9 Anxiety disorder, unspecified; Z68.21 Body mass index [BMI] 21.0-21.9, adult; E86.0 Dehydration; F17.210 Nicotine dependence, cigarettes, uncomplicated; G40.909 Epilepsy, unspecified, not intractable, without status epilepticus; Z82.49 Family history of ischemic heart disease and other diseases of the circulatory system; Z87.442 Personal history of urinary calculi; Z90.710 Acquired absence of both cervix and uterus; Z88.1 Allergy status to other antibiotic agents; Z88.8 Allergy status to other drugs, medicaments and biological substances; Z71.89 Other specified counseling; Z80.0 Family history of malignant neoplasm of digestive organs; Z81.8 Family history of other mental and behavioral disorders; Z84.89 Family history of other specified conditions
CPT/HCPCS: 36415; 71010; 74176; 80053; 81001; 82150; 83690; 83735; 84132; 85007; 85025; 85027; 85610; 85652; 85730; 87081; 87493; 94761; 96361; 96365; 96375; J1885; J1956; J2405; J3480; J3490

== ENCOUNTER 2016-11-08 18:03 | Emergency (ER) | payer MEDICAID ==
[~2016-11-08] VITALS: Ht 170.2 cm; Wt 54.4 kg
[~2016-11-08 18:03] MED LIST changes: +LEVE500T22 PO
[2016-11-08 18:41] LABS: Basophils # (auto) 0 uL; Basophils % (auto) 0.3 % (0.0-2.0); CONDITION Y; Eosinophils # (auto) 0.1 uL; Eosinophils % (auto) 0.8 % (0.0-7.0); Hematocrit 37.3 % (36.0-46.0); Hemoglobin 12.6 g/dL (12.2-16.2); Lymphocytes # (auto) 2.4 uL; Lymphocytes % (auto) 36.2 % (10.0-50.0); Mean Corpuscular Hemoglobin 32.5 pg (28.0-32.0); Mean Corpuscular Hgb Conc. 33.7 g/dL (32.0-36.0); Mean Corpuscular Volume 96.3 fL (80.0-100.0); Mean Platelet Volume 8.3 fL (7.4-10.4); Monocytes # (auto) 0.4 uL; Monocytes % (auto) 5.7 % (0.0-12.0); Neutrophils # (auto) 3.8 uL; Platelet Count (auto) 254 10^3/uL (140-450); Red Cell Distribution Width 14.3 % (11.6-16.0); White Blood Cell 6.7 10^3/uL (4.4-10.8)
[2016-11-08] MEDS ORDERED: LORazepam 2MG/ML-1ML VIAL IV ONE ×2 (19:00→19:45)
[2016-11-08] MEDS ORDERED: SODIUM CHLORIDE 0.9% 1,000 ML IV ONE (19:00)
[2016-11-08 19:06] LABS: Albumin 2.7 g/dL (3.4-5.0); BUN/Creatinine Ratio 16.4; Calcium 7.1 mg/dL (8.5-10.1); Potassium 3.4 mmol/L (3.5-5.1)
[2016-11-08 19:08] LABS: Bilirubin, Total 0.3 mg/dL (0.2-1.0); Total Protein 5.3 g/dL (6.4-8.2)
[2016-11-08] MEDS ORDERED: ONDANSETRON HCL 4 MG/2 ML VIAL IV ONE (19:45)
[2016-11-08 19:53] LABS: Magnesium 1.9 mg/dL (1.6-2.6)
[2016-11-08] MEDS ORDERED: HYDROmorphone HCL 2 MG/ML VL ONE (21:36)
[2016-11-08] MEDS ORDERED: HYDROmorphone HCL 2 MG/ML VL IV ONE (21:45)
[2016-11-08 21:52] VITALS: BP 88/59
== END 2016-11-09 00:20 | disposition home or self-care (01) ==
LOC: EDBD 18:03 → ER 18:06
DX: R56.9 Unspecified convulsions (principal); F41.9 Anxiety disorder, unspecified; F17.210 Nicotine dependence, cigarettes, uncomplicated; F32.9 Major depressive disorder, single episode, unspecified; Z87.442 Personal history of urinary calculi
CPT/HCPCS: 36415; 70450; 80053; 80307; 80320; 82542; 83735; 85025; 96361; 96374; 96375; 99285; J1170; J2060; J2405; J7030

== ENCOUNTER 2016-11-11 15:29 | Inpatient (IN) | payer MEDICAID ==
[~2016-11-11] VITALS: Ht 162.6 cm; Wt 60.3 kg
[2016-11-11 15:58] LABS: Basophils # (auto) 0 uL; Basophils % (auto) 0.3 % (0.0-2.0); CONDITION Y; Eosinophils # (auto) 0.2 uL; Eosinophils % (auto) 3.1 % (0.0-7.0); Hematocrit 43.7 % (36.0-46.0); Hemoglobin 14.5 g/dL (12.2-16.2); Lymphocytes # (auto) 1.9 uL; Lymphocytes % (auto) 35.6 % (10.0-50.0); Mean Corpuscular Hgb Conc. 33.2 g/dL (32.0-36.0); Mean Corpuscular Volume 96.3 fL (80.0-100.0); Mean Platelet Volume 8.7 fL (7.4-10.4); Monocytes # (auto) 0.4 uL; Monocytes % (auto) 7.4 % (0.0-12.0); Neutrophils # (auto) 2.9 uL; Neutrophils % (auto) 53.6 % (37.0-80.0); Platelet Count (auto) 290 10^3/uL (140-450); Red Cell Distribution Width 13.4 % (11.6-16.0); White Blood Cell 5.3 10^3/uL (4.4-10.8)
[2016-11-11 16:19] LABS: BUN/Creatinine Ratio 12.9; Bilirubin, Total 0.3 mg/dL (0.2-1.0); Potassium 3.3 mmol/L (3.5-5.1)
[2016-11-11] MEDS ORDERED: HYDROmorphone HCL 2 MG/ML VL IV ONE (19:15)
[2016-11-11] MEDS ORDERED: SODIUM CHLORIDE 0.9% 1,000 ML IV ONE (19:15)
[2016-11-11] MEDS ORDERED: LOPERAMIDE HCL 2 MG CAP PO ONE (19:15)
[2016-11-11] MEDS ORDERED: ONDANSETRON HCL 4 MG/2 ML VIAL IV ONE (19:15)
[2016-11-11] MEDS ORDERED: LORazepam 2MG/ML-1ML VIAL IV ONE (19:15)
[2016-11-11] MEDS ORDERED: LEVETIRACETAM 500 MG TAB PO ONE (19:30)
[2016-11-11] MEDS ORDERED: POTASSIUM CHL 10% (20 MEQ/15ML) ORAL SOLN PO ONE (19:30)
[2016-11-11] MEDS ORDERED: LOPERAMIDE HCL 2 MG CAP PO PRN (21:15)
[2016-11-11] MEDS ORDERED: LORazepam 2MG/ML-1ML VIAL IV PRN (21:15)
[2016-11-11 21:29] LABS: Urine Bilirubin Negative (Negative); Urine Blood Negative /uL (Negative); Urine Ca Oxalate Crystal FEW (None Seen); Urine Color Yellow (Yellow); Urine Glucose Normal (Normal); Urine Ketone Negative (Negative); Urine Mucus FEW (None Seen); Urine Nitrite Negative (Negative); Urine RBC 2 /hpf (0 - 4); Urine Squamous Epithelial Cell MOD /hpf (<5); Urine Urobilinogen Normal (Negative)
[2016-11-11] MEDS: ENOXAPARIN SOD 30 MG/0.3 ML SYRINGE SC SCH (22:20)
[2016-11-11] MEDS: clonazePAM 0.5 MG TAB PO SCH (22:20)
[2016-11-11] MEDS: LEVETIRACETAM 500 MG TAB PO SCH (22:20)
[2016-11-11] MEDS: SODIUM CHLORIDE 0.9% 1,000 ML IV SCH (22:25)
[2016-11-11] MEDS: ONDANSETRON HCL 4 MG/2 ML VIAL IV PRN (22:33)
[2016-11-11] MEDS: HYDROmorphone HCL 2 MG/ML VL IV PRN (22:33)
[2016-11-11 22:40] VITALS: BP 94/58
[2016-11-11 22:50] VITALS: BP 94/58
[2016-11-12] VITALS (8 sets, daily range): BP systolic 50–95; BP diastolic 46–59
[2016-11-12] MEDS: HYDROmorphone HCL 2 MG/ML VL IV PRN ×5 (04:45→23:14)
[2016-11-12] MEDS: ONDANSETRON HCL 4 MG/2 ML VIAL IV PRN ×5 (05:02→23:24)
[2016-11-12 05:20] LABS: Basophils # (auto) 0 uL; Basophils % (auto) 0.4 % (0.0-2.0); CONDITION Y; Eosinophils # (auto) 0.2 uL; Eosinophils % (auto) 3.1 % (0.0-7.0); Hematocrit 39.9 % (36.0-46.0); Hemoglobin 13.3 g/dL (12.2-16.2); Lymphocytes # (auto) 3.7 uL; Lymphocytes % (auto) 52.5 % (10.0-50.0); Mean Corpuscular Hemoglobin 32.4 pg (28.0-32.0); Mean Corpuscular Hgb Conc. 33.2 g/dL (32.0-36.0); Mean Corpuscular Volume 97.6 fL (80.0-100.0); Monocytes # (auto) 0.5 uL; Monocytes % (auto) 6.7 % (0.0-12.0); Neutrophils # (auto) 2.7 uL; Neutrophils % (auto) 37.3 % (37.0-80.0); Platelet Count (auto) 246 10^3/uL (140-450); Red Cell Distribution Width 13.8 % (11.6-16.0); White Blood Cell 7.1 10^3/uL (4.4-10.8)
[2016-11-12 05:34] LABS: Albumin 2.5 g/dL (3.4-5.0); BUN/Creatinine Ratio 14.5; Potassium 3.2 mmol/L (3.5-5.1)
[2016-11-12 05:37] LABS: Bilirubin, Total 0.3 mg/dL (0.2-1.0); Total Protein 5.2 g/dL (6.4-8.2)
[2016-11-12] MEDS: clonazePAM 0.5 MG TAB PO SCH ×3 (06:26→21:23)
[2016-11-12] MEDS: SODIUM CHLORIDE 0.9% 1,000 ML IV SCH ×2 (06:30→13:29)
[2016-11-12] MEDS: LEVETIRACETAM 500 MG TAB PO SCH (09:37)
[2016-11-12] MEDS: metroNIDAZOLE 500MG/100ML 100 ML IV SCH ×2 (15:05→23:14)
[2016-11-12] MEDS: ENOXAPARIN SOD 30 MG/0.3 ML SYRINGE SC SCH (21:21)
[2016-11-12] MEDS: HYDROcodone-ACET 5/325MG TAB PO PRN (21:23)
[2016-11-12] MEDS: LEVETIRACETAM INJ 1,000 MG in SODIUM CHL 0.9% 100 ML IV SCH (21:24)
[2016-11-13] MEDS: HYDROcodone-ACET 5/325MG TAB PO PRN (01:36)
[2016-11-13] MEDS: SODIUM CHLORIDE 0.9% 1,000 ML IV SCH ×3 (01:40→13:15)
[2016-11-13] MEDS ORDERED: diphenhdrAMINE HCL 25 MG CAP PO ONE (02:00)
[2016-11-13] MEDS: HYDROmorphone HCL 2 MG/ML VL IV PRN ×5 (03:57→23:17)
[2016-11-13] MEDS ORDERED: ACETAMINOPHEN 325 MG TAB PO ONE (05:15)
[2016-11-13] MEDS ORDERED: diphenhdrAMINE HCL 50 MG/1 ML VL IV ONE (05:15)
[2016-11-13 05:17] VITALS: BP 90/56
[2016-11-13 06:08] LABS: CONDITION Y; Hematocrit 36.4 % (36.0-46.0); Hemoglobin 12.2 g/dL (12.2-16.2); Mean Corpuscular Hemoglobin 32.4 pg (28.0-32.0); Mean Corpuscular Hgb Conc. 33.4 g/dL (32.0-36.0); Mean Platelet Volume 8.6 fL (7.4-10.4); Platelet Count (auto) 213 10^3/uL (140-450); Red Cell Distribution Width 13.4 % (11.6-16.0); White Blood Cell 4.1 10^3/uL (4.4-10.8)
[2016-11-13 06:11] LABS: Metamyelocytes % 0; Myelocytes % 0; Promyelocytes % 0; Reactive Lymphocytes 0
[2016-11-13 06:19] LABS: INR 1.08 (0.9-1.15); Prothrombin Time 11.8 sec (9.37-12.3)
[2016-11-13 06:30] LABS: Albumin 2.5 g/dL (3.4-5.0); BUN/Creatinine Ratio 6.9; Bilirubin, Total 0.2 mg/dL (0.2-1.0); Calcium 7.3 mg/dL (8.5-10.1); Magnesium 2.1 mg/dL (1.6-2.6); Potassium 3.1 mmol/L (3.5-5.1); Total Protein 4.7 g/dL (6.4-8.2)
[2016-11-13] MEDS: metroNIDAZOLE 500MG/100ML 100 ML IV SCH ×3 (06:41→23:17)
[2016-11-13] MEDS: clonazePAM 0.5 MG TAB PO SCH ×3 (06:41→21:52)
[2016-11-13 07:46] LABS: Platelet Estimate Adequate
[2016-11-13 09:06] VITALS: BP 96/49
[2016-11-13] MEDS: LEVETIRACETAM INJ 1,000 MG in SODIUM CHL 0.9% 100 ML IV SCH ×2 (09:11→22:32)
[2016-11-13] MEDS: ONDANSETRON HCL 4 MG/2 ML VIAL IV PRN ×2 (13:22→21:52)
[2016-11-13] MEDS: CHOLESTYRAMINE 4 GM POWDER GT SCH (15:07)
[2016-11-13 15:15] VITALS: BP 111/67
[2016-11-13 17:55] VITALS: BP 100/51
[2016-11-13] MEDS: BOOST 8 ounces PO SCH (18:00)
[2016-11-13] MEDS: ENOXAPARIN SOD 30 MG/0.3 ML SYRINGE SC SCH (21:52)
[2016-11-13 22:25] VITALS: BP 94/63
[2016-11-13] MEDS: diphenhdrAMINE HCL 50 MG/1 ML VL IV PRN (22:31)
[2016-11-14] MEDS ORDERED: POTASSIUM CHL 20 Meq TABLET PO ONE (01:15)
[2016-11-14] MEDS: diphenhdrAMINE HCL 50 MG/1 ML VL IV PRN ×5 (02:33→21:08)
[2016-11-14] MEDS: SODIUM CHLORIDE 0.9% 1,000 ML IV SCH ×4 (03:30→21:13)
[2016-11-14] MEDS: HYDROmorphone HCL 2 MG/ML VL IV PRN ×5 (03:38→22:43)
[2016-11-14 05:18] VITALS: BP 93/60
[2016-11-14 06:30] LABS: CONDITION Y; Hematocrit 35.5 % (36.0-46.0); Hemoglobin 11.9 g/dL (12.2-16.2); Mean Corpuscular Hemoglobin 32.5 pg (28.0-32.0); Mean Corpuscular Hgb Conc. 33.5 g/dL (32.0-36.0); Mean Corpuscular Volume 97.1 fL (80.0-100.0); Mean Platelet Volume 8.9 fL (7.4-10.4); Platelet Count (auto) 184 10^3/uL (140-450); Red Cell Distribution Width 13.7 % (11.6-16.0); White Blood Cell 4.2 10^3/uL (4.4-10.8)
[2016-11-14] MEDS: metroNIDAZOLE 500MG/100ML 100 ML IV SCH ×3 (06:36→22:43)
[2016-11-14] MEDS: clonazePAM 0.5 MG TAB PO SCH ×3 (06:36→21:08)
[2016-11-14 06:38] LABS: Albumin 2.2 g/dL (3.4-5.0); BUN/Creatinine Ratio 5.5; Bilirubin, Total 0.1 mg/dL (0.2-1.0); Calcium 7.3 mg/dL (8.5-10.1); Magnesium 2.1 mg/dL (1.6-2.6); Total Protein 4.3 g/dL (6.4-8.2)
[2016-11-14 06:39] LABS: INR 1.07 (0.9-1.15); Prothrombin Time 11.7 sec (9.37-12.3)
[2016-11-14 07:02] LABS: Metamyelocytes % 0; Myelocytes % 0; Promyelocytes % 0; Reactive Lymphocytes 0
[2016-11-14 07:50] LABS: Hypersegmented Neutrophils Present; Platelet Estimate Adequate; RBC Morphology Normal
[2016-11-14] MEDS: BOOST 8 ounces PO SCH ×2 (08:00→18:17)
[2016-11-14 09:00] VITALS: BP 102/62
[2016-11-14] MEDS: LEVETIRACETAM INJ 1,000 MG in SODIUM CHL 0.9% 100 ML IV SCH ×2 (09:35→21:09)
[2016-11-14] MEDS: CHOLESTYRAMINE 4 GM POWDER GT SCH (10:36)
[2016-11-14] MEDS: HYDROcodone-ACET 5/325MG TAB PO PRN (10:36)
[2016-11-14 13:00] VITALS: BP 106/69
[2016-11-14 17:00] VITALS: BP 90/58
[2016-11-14] MEDS: ENOXAPARIN SOD 30 MG/0.3 ML SYRINGE SC SCH (21:09)
[2016-11-14] MEDS: ONDANSETRON HCL 4 MG/2 ML VIAL IV PRN (21:26)
[2016-11-14 21:49] VITALS: BP 96/57
[2016-11-15] MEDS: HYDROmorphone HCL 2 MG/ML VL IV PRN ×3 (03:11→11:37)
[2016-11-15] MEDS: diphenhdrAMINE HCL 50 MG/1 ML VL IV PRN ×3 (03:12→11:37)
[2016-11-15 05:13] VITALS: BP 92/59
[2016-11-15] MEDS: clonazePAM 0.5 MG TAB PO SCH ×2 (06:00→14:00)
[2016-11-15] MEDS: SODIUM CHLORIDE 0.9% 1,000 ML IV SCH ×2 (06:15→13:13)
[2016-11-15 06:47] LABS: Basophils # (auto) 0 uL; Basophils % (auto) 0.6 % (0.0-2.0); CONDITION Y; Eosinophils # (auto) 0.1 uL; Eosinophils % (auto) 2.6 % (0.0-7.0); Hematocrit 36.5 % (36.0-46.0); Hemoglobin 12.3 g/dL (12.2-16.2); Lymphocytes # (auto) 2.3 uL; Lymphocytes % (auto) 50.1 % (10.0-50.0); Mean Corpuscular Hemoglobin 32.5 pg (28.0-32.0); Mean Corpuscular Hgb Conc. 33.5 g/dL (32.0-36.0); Mean Corpuscular Volume 96.9 fL (80.0-100.0); Mean Platelet Volume 9.2 fL (7.4-10.4); Monocytes # (auto) 0.3 uL; Monocytes % (auto) 6.5 % (0.0-12.0); Neutrophils # (auto) 1.9 uL; Neutrophils % (auto) 40.2 % (37.0-80.0); Platelet Count (auto) 202 10^3/uL (140-450); Red Cell Distribution Width 13.6 % (11.6-16.0); White Blood Cell 4.7 10^3/uL (4.4-10.8)
[2016-11-15 06:54] LABS: INR 1.08 (0.9-1.15); Prothrombin Time 11.8 sec (9.37-12.3)
[2016-11-15] MEDS: metroNIDAZOLE 500MG/100ML 100 ML IV SCH ×2 (06:58→15:00)
[2016-11-15 07:07] LABS: Potassium 3.7 mmol/L (3.5-5.1)
[2016-11-15 07:14] LABS: Albumin 2.2 g/dL (3.4-5.0); BUN/Creatinine Ratio 3.2; Calcium 7.2 mg/dL (8.5-10.1); Magnesium 1.8 mg/dL (1.6-2.6)
[2016-11-15 07:22] LABS: Bilirubin, Total 0.2 mg/dL (0.2-1.0); Total Protein 4.4 g/dL (6.4-8.2)
[2016-11-15 09:00] VITALS: BP 104/44
[2016-11-15] MEDS: HYDROcodone-ACET 5/325MG TAB PO PRN (10:26)
[2016-11-15] MEDS: LEVETIRACETAM INJ 1,000 MG in SODIUM CHL 0.9% 100 ML IV SCH (10:26)
[2016-11-15] MEDS: CHOLESTYRAMINE 4 GM POWDER GT SCH (10:26)
[2016-11-15] MEDS: BOOST 8 ounces PO SCH (10:27)
[2016-11-15] MEDS: ONDANSETRON HCL 4 MG/2 ML VIAL IV PRN (10:30)
[2016-11-15 13:51] VITALS: BP 98/59
== END 2016-11-15 16:45 | disposition home or self-care (01) | DRG 53 ==
LOC: EDBD 15:29 → ER 15:29 → OVERFLOW 15:30 → WEST WING 22:40
PROVIDERS: ADMIT Family Medicine; ATTEND Internal Medicine
DX: G40.401 Other generalized epilepsy and epileptic syndromes, not intractable, with status epilepticus (principal); A04.7 Enterocolitis due to Clostridium difficile; F17.210 Nicotine dependence, cigarettes, uncomplicated; F41.9 Anxiety disorder, unspecified; K58.9 Irritable bowel syndrome, unspecified; F32.9 Major depressive disorder, single episode, unspecified; Z87.442 Personal history of urinary calculi; Z80.0 Family history of malignant neoplasm of digestive organs; Z82.49 Family history of ischemic heart disease and other diseases of the circulatory system; Z79.899 Other long term (current) drug therapy; Z84.89 Family history of other specified conditions; Z83.79 Family history of other diseases of the digestive system; Z88.1 Allergy status to other antibiotic agents
CPT/HCPCS: 36415; 70450; 71010; 74176; 80053; 80307; 81001; 82378; 82542; 83036; 83735; 84702; 85007; 85025; 85027; 85048; 85610; 87040; 87045; 87081; 87493; 87899; 93005; 93306; 96361; 96374; 96375; J2405; J3490

== ENCOUNTER 2016-12-14 13:58 | Emergency (ER) | payer MEDICAID ==
[~2016-12-14] VITALS: Ht 165.1 cm; Wt 45.4 kg
[~2016-12-14 13:58] MED LIST changes: +CLON05T PO; -CLON1TAB3 PO; +DICL-176 PO; +PROM25TA5 PO
[2016-12-14] MEDS ORDERED: LORazepam 2MG/ML-1ML VIAL IV ONE (14:30)
[2016-12-14] MEDS ORDERED: SODIUM CHLORIDE 0.9% 1,000 ML IVB ONE (14:36)
[2016-12-14] MEDS ORDERED: AMMONIA 0.33 ML INHALANT IN ONE ×2 (14:56→15:30)
[2016-12-14 15:13] LABS: Basophils # (auto) 0 uL; Basophils % (auto) 0.2 % (0.0-2.0); CONDITION Y; Eosinophils # (auto) 0.2 uL; Eosinophils % (auto) 3.3 % (0.0-7.0); Hematocrit 40.9 % (36.0-46.0); Hemoglobin 13.5 g/dL (12.2-16.2); Lymphocytes # (auto) 2.7 uL; Lymphocytes % (auto) 38.6 % (10.0-50.0); Mean Corpuscular Hgb Conc. 33.1 g/dL (32.0-36.0); Mean Corpuscular Volume 96.8 fL (80.0-100.0); Mean Platelet Volume 8.4 fL (7.4-10.4); Monocytes # (auto) 0.4 uL; Monocytes % (auto) 5.5 % (0.0-12.0); Neutrophils # (auto) 3.6 uL; Neutrophils % (auto) 52.4 % (37.0-80.0); Platelet Count (auto) 317 10^3/uL (140-450); White Blood Cell 6.9 10^3/uL (4.4-10.8)
[2016-12-14 15:35] LABS: Calcium 7.7 mg/dL (8.5-10.1); Chloride 112 mmol/L (98-107); Potassium 3.2 mmol/L (3.5-5.1); Sodium 145 mmol/L (136-145)
[2016-12-14 15:41] LABS: Albumin 2.9 g/dL (3.4-5.0); Alkaline Phosphatase 59 U/L (45-117); Anion Gap 9 (5-15); Aspartate Aminotransferase 20 U/L (15-37); BUN/Creatinine Ratio 16.3; Bilirubin, Total 0.2 mg/dL (0.2-1.0); Blood Urea Nitrogen 14 mg/dL (7-18); Carbon Dioxide 24 mmol/L (21-32); GFR African American 95 mL/min; GFR Non-African American 79 mL/min; Glucose 71 mg/dL (74-106); Magnesium 2.3 mg/dL (1.6-2.6); Total Protein 6.1 g/dL (6.4-8.2)
[2016-12-14 15:56] LABS: Urine Bilirubin Negative (Negative); Urine Blood Negative /uL (Negative); Urine Color Yellow (Yellow); Urine Glucose Normal (Normal); Urine Ketone Negative (Negative); Urine Mucus FEW (None Seen); Urine Nitrite Negative (Negative); Urine RBC 1 /hpf (0 - 4); Urine Squamous Epithelial Cell FEW /hpf (<5); Urine Urobilinogen Normal (Negative)
[2016-12-14 18:24] VITALS: BP 81/59
[2016-12-14] MEDS ORDERED: HYDROcodone-ACET 5/325MG TAB PO PRN (18:45)
[2016-12-14] MEDS ORDERED: NITROGLYCERIN 0.4 MG SL TAB SL PRN (18:45)
[2016-12-14] MEDS ORDERED: HYDROmorphone HCL 2 MG/ML VL IV PRN (18:45)
[2016-12-14] MEDS ORDERED: POTASSIUM CHL 20 Meq TABLET PO ONE (18:45)
[2016-12-14] MEDS ORDERED: PROMETHAZINE HCL 25 MG/ML 1ML IV PRN (18:45)
[2016-12-14] MEDS ORDERED: TEMAZEPAM 15 MG CAP PO PRN (18:45)
[2016-12-14] MEDS ORDERED: LACTULOSE 20Gm/30ML SOLN PO PRN (18:45)
[2016-12-14] MEDS ORDERED: ACETAMINOPHEN 500 MG TAB PO PRN (18:45)
[2016-12-14] MEDS ORDERED: LORazepam 2MG/ML-1ML VIAL IV PRN ×2 (18:45)
[2016-12-14] MEDS ORDERED: SOD CHL 0.9%/ KCL 20MEQ 1,000 ML IV SCH (18:45)
[2016-12-14] MEDS ORDERED: LEVETIRACETAM 500 MG TAB PO SCH (22:00)
[2016-12-14] MEDS ORDERED: TOPIRAMATE 25 MG TAB PO SCH (22:00)
[2016-12-14] MEDS ORDERED: MIRTAZAPINE 30 MG TAB PO SCH (22:00)
[2016-12-14] MEDS ORDERED: clonazePAM 0.5 MG TAB PO SCH (22:00)
== END 2016-12-14 20:14 | disposition home or self-care (01) ==
LOC: EDBD 13:58 → ER 14:01
DX: F44.5 Conversion disorder with seizures or convulsions (principal); E87.6 Hypokalemia; E44.0 Moderate protein-calorie malnutrition; F17.210 Nicotine dependence, cigarettes, uncomplicated; F41.9 Anxiety disorder, unspecified; F32.9 Major depressive disorder, single episode, unspecified; F19.20 Other psychoactive substance dependence, uncomplicated
CPT/HCPCS: 36415; 71010; 80053; 80307; 80320; 81001; 82962; 83605; 83735; 84443; 85025; 85652; 93005; 94761; 96361; 96374; 99285; J2060; J7030

== ENCOUNTER 2016-12-17 19:14 | Emergency (ER) | payer MEDICAID ==
[~2016-12-17] VITALS: Ht 167.6 cm; Wt 54.4 kg
[2016-12-17] MEDS ORDERED: LORazepam 2MG/ML-1ML VIAL ONE (19:40)
[2016-12-17 19:47] LABS: Basophils # (auto) 0 uL; Basophils % (auto) 0.4 % (0.0-2.0); CONDITION Y; Eosinophils # (auto) 0.3 uL; Eosinophils % (auto) 3.7 % (0.0-7.0); Hematocrit 45.1 % (36.0-46.0); Hemoglobin 15.4 g/dL (12.2-16.2); Lymphocytes # (auto) 3.6 uL; Lymphocytes % (auto) 40.8 % (10.0-50.0); Mean Corpuscular Volume 94.1 fL (80.0-100.0); Mean Platelet Volume 8.4 fL (7.4-10.4); Monocytes # (auto) 0.5 uL; Monocytes % (auto) 5.6 % (0.0-12.0); Neutrophils # (auto) 4.4 uL; Neutrophils % (auto) 49.5 % (37.0-80.0); Platelet Count (auto) 370 10^3/uL (140-450); Red Cell Distribution Width 13.8 % (11.6-16.0); White Blood Cell 8.9 10^3/uL (4.4-10.8)
[2016-12-17 20:14] LABS: Salicylate < 1.7 mg/dL (2.8-20.0)
[2016-12-17 20:15] LABS: Albumin 3.5 g/dL (3.4-5.0); Anion Gap 10 (5-15); Aspartate Aminotransferase 32 U/L (15-37); BUN/Creatinine Ratio 19.5; Blood Urea Nitrogen 17 mg/dL (7-18); Calcium 9.5 mg/dL (8.5-10.1); Carbon Dioxide 21 mmol/L (21-32); Chloride 110 mmol/L (98-107); GFR African American 94 mL/min; GFR Non-African American 78 mL/min; Glucose 83 mg/dL (74-106); Magnesium 2.2 mg/dL (1.6-2.6); Potassium 3.4 mmol/L (3.5-5.1); Sodium 141 mmol/L (136-145)
[2016-12-17 20:17] LABS: Acetaminophen < 2.0 ug/mL (10-30); Alkaline Phosphatase 65 U/L (45-117); Bilirubin, Total 0.5 mg/dL (0.2-1.0)
[2016-12-17 20:30] LABS: Urine Bilirubin Negative (Negative); Urine Blood Negative /uL (Negative); Urine Color Yellow (Yellow); Urine Glucose Normal (Normal); Urine Ketone Negative (Negative); Urine Mucus FEW (None Seen); Urine Nitrite Negative (Negative); Urine RBC <1 /hpf (0 - 4); Urine Squamous Epithelial Cell FEW /hpf (<5); Urine Urobilinogen Normal (Negative); Urine pH 5.5 (5.0-8.0)
[2016-12-17] MEDS ORDERED: SODIUM CHLORIDE 0.9% 1,000 ML IV ONE ×2 (21:30→22:00)
[2016-12-18] MEDS ORDERED: SODIUM CHLORIDE 0.9% 1,000 ML IV ONE (01:30)
[2016-12-18 01:49] LABS: Albumin 2.8 g/dL (3.4-5.0); BUN/Creatinine Ratio 19.2; Calcium 7.8 mg/dL (8.5-10.1); Potassium 3.4 mmol/L (3.5-5.1)
[2016-12-18 01:51] LABS: Bilirubin, Total 0.4 mg/dL (0.2-1.0); Total Protein 7.5 g/dL (6.4-8.2)
[2016-12-18] MEDS ORDERED: LEVE100020 (13:09)
[2016-12-18] MEDS ORDERED: LEVE100020 PO (13:09)
[2016-12-18] MEDS ORDERED: CLON1TAB3 PO (13:13)
[2016-12-18] MEDS ORDERED: MIRTAZAPINE 30 MG TAB PO ONE (17:45)
[2016-12-18] MEDS ORDERED: ONDANSETRON ODT 4 MG TAB PO SCH (18:00)
[2016-12-18] MEDS ORDERED: LEVETIRACETAM 500 MG TAB PO ONE (18:00)
[2016-12-18] MEDS ORDERED: ONDANSETRON ODT 4 MG TAB PO PRN (18:15)
[2016-12-18] MEDS ORDERED: LEVETIRACETAM 500 MG TAB PO SCH (22:00)
[2016-12-18] MEDS ORDERED: clonazePAM 0.5 MG TAB PO ONE (22:00)
[2016-12-18] MEDS: clonazePAM 0.5 MG TAB PO SCH (22:46)
[2016-12-18] MEDS: MIRTAZAPINE 30 MG TAB PO SCH (22:47)
[2016-12-19] MEDS ORDERED: LEVETIRACETAM 500 MG TAB PO SCH (07:00)
[2016-12-19] MEDS: clonazePAM 0.5 MG TAB PO SCH ×4 (07:48→21:58)
[2016-12-19] MEDS ORDERED: AMMONIA 0.33 ML INHALANT IN ONE ×2 (15:36→17:45)
[2016-12-19] MEDS ORDERED: LORazepam 2MG/ML-1ML VIAL ONE (15:38)
[2016-12-19] MEDS ORDERED: LORazepam 2MG/ML-1ML VIAL IV ONE ×4 (15:45→22:00)
[2016-12-19] MEDS: MIRTAZAPINE 30 MG TAB PO SCH (21:58)
[2016-12-19] MEDS: TOPIRAMATE 25 MG TAB PO SCH (21:58)
[2016-12-19] MEDS: LEVETIRACETAM 500 MG TAB PO SCH (21:58)
[2016-12-19] MEDS ORDERED: DIAZEPAM 5 MG/ML 2ML SYRG IV ONE (23:15)
[2016-12-19] MEDS ORDERED: DIAZEPAM 5 MG TAB PO ONE (23:30)
[2016-12-20] MEDS: clonazePAM 0.5 MG TAB PO SCH (06:45)
[2016-12-20] MEDS: LEVETIRACETAM 500 MG TAB PO SCH (10:14)
[2016-12-20] MEDS: TOPIRAMATE 25 MG TAB PO SCH (10:14)
[2016-12-20 13:04] VITALS: BP 86/65
== END 2016-12-20 13:08 | disposition short-term general hospital (02) ==
LOC: EDBD 19:14 → ER 19:23
DX: F19.20 Other psychoactive substance dependence, uncomplicated (principal); R56.9 Unspecified convulsions; F17.210 Nicotine dependence, cigarettes, uncomplicated; F41.9 Anxiety disorder, unspecified; F32.9 Major depressive disorder, single episode, unspecified
CPT/HCPCS: 36415; 51702; 80053; 80307; 80320; 80329; 81001; 83735; 85025; 93005; 96361; 96374; 96376; 99291; J2060; J7030

== ENCOUNTER 2017-01-13 19:26 | Inpatient (IN) | payer MEDICAID ==
[~2017-01-13] VITALS: Ht 165.1 cm; Wt 56.2 kg
[~2017-01-13 19:26] MED LIST changes: -CLON05T PO; +CLON1TAB3 PO; +LEVE100020; +LEVE100020 PO; -LEVE500T22 PO; +LORazepam 2MG/ML-1ML VIAL ONE
[2017-01-13] MEDS ORDERED: LORazepam 2MG/ML-1ML VIAL IV ONE (20:00)
[2017-01-13] MEDS ORDERED: PHENobarbital SODIUM INJ 600 MG in SODIUM CHL 0.9% 100 ML IV ONE (20:00)
[2017-01-13 20:30] LABS: Basophils # (auto) 0.1 uL; Basophils % (auto) 1.2 % (0.0-2.0); Eosinophils # (auto) 0.2 uL; Eosinophils % (auto) 1.8 % (0.0-7.0); Hematocrit 41.9 % (36.0-46.0); Hemoglobin 14.2 g/dL (12.2-16.2); Lymphocytes # (auto) 4.4 uL; Lymphocytes % (auto) 43.4 % (10.0-50.0); Mean Corpuscular Hemoglobin 32.5 pg (28.0-32.0); Mean Corpuscular Hgb Conc. 33.8 g/dL (32.0-36.0); Mean Corpuscular Volume 96.3 fL (80.0-100.0); Mean Platelet Volume 8.5 fL (7.4-10.4); Monocytes # (auto) 0.6 uL; Monocytes % (auto) 6.2 % (0.0-12.0); Neutrophils # (auto) 4.8 uL; Neutrophils % (auto) 47.4 % (37.0-80.0); Platelet Count (auto) 292 10^3/uL (140-450); Red Cell Distribution Width 14.1 % (11.6-16.0); White Blood Cell 10.1 10^3/uL (4.4-10.8)
[2017-01-13 21:14] LABS: Albumin 3.4 g/dL (3.4-5.0); Bilirubin, Total 0.3 mg/dL (0.2-1.0); Calcium 8.4 mg/dL (8.5-10.1); Potassium 3.8 mmol/L (3.5-5.1); Total Protein 6.9 g/dL (6.4-8.2)
[2017-01-13] MEDS ORDERED: NALBUPHINE HCL 10 MG/1ml INJECTION IV ONE (23:00)
[2017-01-13] MEDS ORDERED: SODIUM CHLORIDE 0.9% 1,000 ML IV ONE (23:00)
[2017-01-13] MEDS ORDERED: diphenhdrAMINE HCL 50 MG/1 ML VL IV ONE (23:15)
[2017-01-14] MEDS ORDERED: HETASTARCH 500 ML IV ONE (00:30)
[2017-01-14 05:35] LABS: Urine Bilirubin Negative (Negative); Urine Blood TRACE /uL (Negative); Urine Color Yellow (Yellow); Urine Glucose Normal (Normal); Urine Ketone Negative (Negative); Urine Mucus FEW (None Seen); Urine Nitrite Negative (Negative); Urine RBC 37 /hpf (0 - 4); Urine Squamous Epithelial Cell FEW /hpf (<5); Urine Urobilinogen Normal (Negative)
[2017-01-14] MEDS: SODIUM CHLORIDE 0.9% 1,000 ML IV SCH ×2 (06:31→19:01)
[2017-01-14] MEDS ORDERED: HYDROcodone-ACET 5/325MG TAB PO PRN (06:45)
[2017-01-14] MEDS ORDERED: MORPHINE SULF INJ 2 MG/ML SYRINGE 1ML IV PRN (06:45)
[2017-01-14] MEDS ORDERED: ACETAMINOPHEN 325 MG TAB PO PRN (06:45)
[2017-01-14] MEDS ORDERED: NITROGLYCERIN 0.4 MG SL TAB SL PRN (06:45)
[2017-01-14 06:48] LABS: Base Excess -6.2 mmol/L (-2.0-2.0); Blood 02Sat 95.8 % (96-100); Blood COHb 0.3 % (0.5-1.5); Blood MetHb 0.3 % (0.0-1.5); HCO3 18.4 mmol/L (22-26.0); HHb 4.2 % (0.0-5.0); MODE ROOM AIR; O2Hb 95.2 % (94.0-97.0); PO2 86.7 mmHg (80.0-100.0); PO2(T) 86.7 mmHg (80.0-100.0); Sample Type Arterial; pH 7.352 (7.350-7.450)
[2017-01-14] MEDS ORDERED: ALBUMIN 5% 250 ML IV ONE ×2 (07:31→07:45)
[2017-01-14] MEDS ORDERED: SODIUM CHLORIDE 0.9% 1,000 ML IV ONE (09:30)
[2017-01-14] MEDS ORDERED: LEVETIRACETAM 500 MG TAB PO SCH (10:00)
[2017-01-14] MEDS ORDERED: TOPIRAMATE 25 MG TAB PO SCH (10:00)
[2017-01-14] MEDS ORDERED: FAMOTIDINE 20 MG TAB PO SCH (10:00)
[2017-01-14 10:20] VITALS: BP 84/55
[2017-01-14] MEDS: ENOXAPARIN SOD 40 MG/0.4 ML SYRINGE SC SCH (12:05)
[2017-01-14] MEDS: clonazePAM 0.5 MG TAB PO SCH (12:06)
[2017-01-14] MEDS ORDERED: KETOROLAC TROMETH 30 MG/ML 1ML VIAL IV PRN (12:15)
[2017-01-14 14:02] VITALS: BP 84/55
[2017-01-14 14:26] VITALS: BP 82/51
[2017-01-14 17:50] VITALS: BP 86/55
[2017-01-14 22:00] VITALS: BP 87/57
[2017-01-14] MEDS ORDERED: MIRTAZAPINE 30 MG TAB PO SCH (22:00)
[2017-01-14] MEDS: LEVETIRACETAM 500 MG TAB PO SCH (22:27)
[2017-01-14] MEDS ORDERED: MIRTAZAPINE 30 MG TAB PO ONE (22:30)
[2017-01-14] MEDS ORDERED: FAMOTIDINE 20 MG TAB PO ONE (22:30)
[2017-01-14] MEDS ORDERED: TOPIRAMATE 25 MG TAB PO ONE (22:30)
[2017-01-14] MEDS: KETOROLAC TROMETH 30 MG/ML 1ML VIAL IV PRN (23:15)
[2017-01-15 05:00] VITALS: BP 81/48
[2017-01-15] MEDS: LEVETIRACETAM 500 MG TAB PO SCH ×2 (06:21→21:35)
[2017-01-15] MEDS ORDERED: LEVETIRACETAM 500 MG TAB PO SCH (07:00)
[2017-01-15 09:12] VITALS: BP 81/52
[2017-01-15] MEDS: FAMOTIDINE 20 MG TAB PO SCH ×2 (10:00→21:35)
[2017-01-15] MEDS: SODIUM CHLORIDE 0.9% 1,000 ML IV SCH ×2 (10:20→19:38)
[2017-01-15] MEDS: clonazePAM 0.5 MG TAB PO SCH (11:00)
[2017-01-15] MEDS: TOPIRAMATE 25 MG TAB PO SCH ×2 (11:01→21:35)
[2017-01-15] MEDS: ENOXAPARIN SOD 40 MG/0.4 ML SYRINGE SC SCH (11:02)
[2017-01-15 12:15] VITALS: BP 89/52
[2017-01-15] MEDS: ONDANSETRON HCL 4 MG/2 ML VIAL IV PRN ×2 (13:21→19:28)
[2017-01-15] MEDS: KETOROLAC TROMETH 30 MG/ML 1ML VIAL IV PRN ×2 (13:25→19:28)
[2017-01-15 16:50] VITALS: BP 87/49
[2017-01-15] MEDS: LORazepam 2MG/ML-1ML VIAL IV PRN ×2 (20:23→20:28)
[2017-01-15 21:57] VITALS: BP 91/50
[2017-01-15] MEDS ORDERED: MIRTAZAPINE 30 MG TAB PO SCH (22:00)
[2017-01-16 05:00] VITALS: BP 78/44
[2017-01-16] MEDS: LEVETIRACETAM 500 MG TAB PO SCH (06:08)
[2017-01-16] MEDS: SODIUM CHLORIDE 0.9% 1,000 ML IV SCH (08:31)
[2017-01-16 09:00] VITALS: BP 69/38
[2017-01-16] MEDS: ENOXAPARIN SOD 40 MG/0.4 ML SYRINGE SC SCH (10:00)
[2017-01-16] MEDS: TOPIRAMATE 25 MG TAB PO SCH (11:21)
[2017-01-16] MEDS: FAMOTIDINE 20 MG TAB PO SCH (11:21)
[2017-01-16] MEDS: clonazePAM 0.5 MG TAB PO SCH (11:21)
[2017-01-16] MEDS: KETOROLAC TROMETH 30 MG/ML 1ML VIAL IV PRN (11:24)
[2017-01-16] MEDS: ONDANSETRON HCL 4 MG/2 ML VIAL IV PRN (11:56)
[2017-01-16] MEDS ORDERED: VANCOMYCIN HCL 125MG/5ML ORAL SOL PO SCH (12:00)
[2017-01-16] MEDS ORDERED: metroNIDAZOLE 500 MG TAB PO SCH (14:00)
[2017-01-16 14:03] VITALS: BP 84/52
== END 2017-01-16 13:05 | disposition left against medical advice (07) | DRG 53 ==
LOC: EDBD 19:26 → ER 19:26 → TELE 19:27 → TELE-CENTR 01-14 10:26 → UNDODISIN 01-14 17:58
PROVIDERS: ADMIT Nurse Practitioner; ATTEND Internal Medicine Pulmonary Disease
DX: G40.409 Other generalized epilepsy and epileptic syndromes, not intractable, without status epilepticus (principal); G92 Toxic encephalopathy; A04.7 Enterocolitis due to Clostridium difficile; F32.9 Major depressive disorder, single episode, unspecified; F41.9 Anxiety disorder, unspecified; E86.0 Dehydration; Z53.21 Procedure and treatment not carried out due to patient leaving prior to being seen by health care provider; Z80.0 Family history of malignant neoplasm of digestive organs; Z82.49 Family history of ischemic heart disease and other diseases of the circulatory system; Z87.891 Personal history of nicotine dependence
CPT/HCPCS: 36415; 36600; 51702; 70450; 76775; 80053; 80307; 81001; 82542; 82805; 84702; 85025; 87493; 96365; 96375; J1885; J2405

== ENCOUNTER 2017-02-04 01:00 | Emergency (ER) | payer MEDICAID ==
[~2017-02-04] VITALS: Ht 162.6 cm; Wt 45.4 kg
[~2017-02-04 01:00] MED LIST changes: -LORazepam 2MG/ML-1ML VIAL ONE
== END 2017-02-04 02:00 | disposition left against medical advice (07) ==
LOC: EDBD 01:00 → ER 01:04
DX: R56.9 Unspecified convulsions (principal); Z53.21 Procedure and treatment not carried out due to patient leaving prior to being seen by health care provider

== ENCOUNTER 2017-07-18 09:56 | Inpatient (IN) | payer MEDICAID ==
[~2017-07-18] VITALS: Ht 167.6 cm; Wt 59.5 kg
[2017-07-18] MEDS ORDERED: SODIUM CHLORIDE 0.9% 1,000 ML IV ONE ×2 (10:08)
[2017-07-18 11:05] LABS: Urine Amorphous Crystal FEW /hpf (None Seen); Urine Bacteria NONE SEEN /hpf (None Seen); Urine Blood Negative /uL (Negative); Urine Mucus FEW (None Seen); Urine Specific Gravity 1.024 (1.001-1.035); Urine WBC 5 /hpf (0 - 5)
[2017-07-18 11:10] LABS: Basophils # (auto) 0 uL; Basophils % (auto) 0.4 % (0.0-2.0); Eosinophils # (auto) 0.3 uL; Eosinophils % (auto) 5.3 % (0.0-7.0); Hematocrit 42.1 % (36.0-46.0); Hemoglobin 13.8 g/dL (12.2-16.2); Lymphocytes # (auto) 2.2 uL; Lymphocytes % (auto) 38.1 % (10.0-50.0); Mean Corpuscular Hemoglobin 31.3 pg (28.0-32.0); Mean Corpuscular Hgb Conc. 32.9 g/dL (32.0-36.0); Mean Corpuscular Volume 95.1 fL (80.0-100.0); Monocytes # (auto) 0.4 uL; Monocytes % (auto) 6.4 % (0.0-12.0); Neutrophils # (auto) 2.8 uL; Neutrophils % (auto) 49.8 % (37.0-80.0); Nucleated Red Blood Cells % 0.1 %; Platelet Count (auto) 253 10^3/uL (140-450); Red Blood Cells 4.42 10^6/uL (4.0-5.20); Red Cell Distribution Width 14.6 % (11.8-14.3); White Blood Cell 5.7 10^3/uL (4.4-10.8)
[2017-07-18 11:38] LABS: Alanine Aminotransferase 22 U/L (13-56); Albumin 2.9 g/dL (3.4-5.0); Alkaline Phosphatase 56 U/L (45-117); Anion Gap 8 (5-15); Aspartate Aminotransferase 27 U/L (15-37); BUN/Creatinine Ratio 10.1; Bilirubin, Total 0.4 mg/dL (0.2-1.0); Blood Urea Nitrogen 9 mg/dL (7-18); Calcium 7.7 mg/dL (8.5-10.1); Carbon Dioxide 26 mmol/L (21-32); Chloride 105 mmol/L (98-107); GFR African American 91 mL/min; GFR Non-African American 75 mL/min; Glucose 81 mg/dL (74-106); Sodium 139 mmol/L (136-145); Total Protein 6.3 g/dL (6.4-8.2)
[2017-07-18 11:42] LABS: Potassium 2.9 mmol/L (3.5-5.1)
[2017-07-18 11:49] LABS: Amphetamine Screen, Urine NEGATIVE (NEGATIVE); Barbiturate Scree,Urine NEGATIVE (NEGATIVE); Benzodiazephine Screen, Urine POSITIVE (NEGATIVE); Cannabinoid Screen, Urine NEGATIVE (NEGATIVE); Cocaine Screen, Urine NEGATIVE (NEGATIVE); Opiate Scree,Urine NEGATIVE (NEGATIVE); Phencyclidine Screen, Urine NEGATIVE (NEGATIVE)
[2017-07-18] MEDS ORDERED: SODIUM CHLORIDE 0.9% 1,000 ML IV SCH (12:00)
[2017-07-18] MEDS ORDERED: clonazePAM 0.5 MG TAB PO PRN (12:00)
[2017-07-18] MEDS ORDERED: LORazepam 0.5 MG TAB PO PRN (12:00)
[2017-07-18] MEDS ORDERED: POTASSIUM CHL 10% (20 MEQ/15ML) 15ml ORAL SOLN PO ONE (12:00)
[2017-07-18] MEDS ORDERED: MORPHINE SULFATE 4 MG/ML SYR/VIAL IV PRN (12:00)
[2017-07-18] MEDS ORDERED: ONDANSETRON HCL 4 MG/2 ML VIAL IV PRN (12:15)
[2017-07-18 12:37] LABS: Magnesium 2.4 mg/dL (1.6-2.6)
[2017-07-18] MEDS: OXYCODONE W/ ACETAMINOPHEN 5/325MG TABLET PO PRN ×2 (13:21→18:25)
[2017-07-18 15:00] LABS: Folate (Folic Acid) 10.18 ng/mL (5.38-24)
[2017-07-18] MEDS: SODIUM CHLORIDE 0.9% 1,000 ML IV SCH ×2 (15:00→23:49)
[2017-07-18] MEDS ORDERED: CLON1TAB PO (18:34)
[2017-07-18] MEDS ORDERED: TOPI50TA53 PO (18:34)
[2017-07-18 20:00] VITALS: BP 86/48
[2017-07-18 21:30] VITALS: BP 86/48
[2017-07-18] MEDS: clonazePAM 0.5 MG TAB PO PRN (21:31)
[2017-07-18] MEDS: TOPIRAMATE 25 MG TAB PO SCH (21:31)
[2017-07-18] MEDS: KETOROLAC TROMETH 30 MG/ML 1ML VIAL IV PRN (21:32)
[2017-07-18] MEDS ORDERED: TOPIRAMATE 25 MG TAB PO SCH (22:00)
[2017-07-19] MEDS: OXYCODONE W/ ACETAMINOPHEN 5/325MG TABLET PO PRN ×3 (00:49→13:07)
[2017-07-19] MEDS: KETOROLAC TROMETH 30 MG/ML 1ML VIAL IV PRN ×2 (03:34→11:46)
[2017-07-19 04:40] VITALS: BP 83/50
[2017-07-19 06:00] LABS: Basophils # (auto) 0 uL; Basophils % (auto) 0.5 % (0.0-2.0); Eosinophils # (auto) 0.3 uL; Eosinophils % (auto) 5.7 % (0.0-7.0); Hemoglobin 12.7 g/dL (12.2-16.2); Lymphocytes # (auto) 3.2 uL; Lymphocytes % (auto) 53.4 % (10.0-50.0); Mean Corpuscular Hemoglobin 32.3 pg (28.0-32.0); Mean Corpuscular Hgb Conc. 33.5 g/dL (32.0-36.0); Mean Corpuscular Volume 96.5 fL (80.0-100.0); Monocytes # (auto) 0.4 uL; Monocytes % (auto) 7.3 % (0.0-12.0); Neutrophils % (auto) 33.1 % (37.0-80.0); Nucleated Red Blood Cells % 0.1 %; Platelet Count (auto) 191 10^3/uL (140-450); Red Blood Cells 3.94 10^6/uL (4.0-5.20); Red Cell Distribution Width 14.3 % (11.8-14.3)
[2017-07-19 06:21] LABS: BUN/Creatinine Ratio 11.1; Calcium 7.3 mg/dL (8.5-10.1); Potassium 3.6 mmol/L (3.5-5.1)
[2017-07-19] MEDS ORDERED: diphenhdrAMINE HCL 50 MG/1 ML VL IV ONE (08:45)
[2017-07-19] MEDS ORDERED: SODIUM CHLORIDE 0.9% 500 ML IV ONE (08:45)
[2017-07-19 09:00] VITALS: BP_SYST 83; BP_SYST 87; BP_DIAS 48; BP_DIAS 51
[2017-07-19] MEDS: SODIUM CHLORIDE 0.9% 1,000 ML IV SCH ×2 (09:30→19:41)
[2017-07-19] MEDS: TOPIRAMATE 25 MG TAB PO SCH ×2 (09:51→21:32)
[2017-07-19 12:57] VITALS: BP 83/48
[2017-07-19 13:00] VITALS: BP 83/48
[2017-07-19] MEDS ORDERED: MORPHINE SULFATE 4 MG/ML SYR/VIAL IV PRN (14:30)
[2017-07-19] MEDS: diphenhdrAMINE HCL 25 MG CAP PO PRN ×2 (15:30→19:40)
[2017-07-19] MEDS: MORPHINE SULFATE 4 MG/ML SYR/VIAL IV PRN ×2 (15:30→19:40)
[2017-07-19 16:51] VITALS: BP 85/56
[2017-07-19] MEDS: clonazePAM 0.5 MG TAB PO PRN (21:32)
[2017-07-19 22:00] VITALS: BP_SYST 151; BP_SYST 80; BP_DIAS 46; BP_DIAS 73
[2017-07-20] MEDS: diphenhdrAMINE HCL 25 MG CAP PO PRN ×5 (00:39→21:36)
[2017-07-20] MEDS: MORPHINE SULFATE 4 MG/ML SYR/VIAL IV PRN ×5 (00:40→21:36)
[2017-07-20] MEDS: SODIUM CHLORIDE 0.9% 1,000 ML IV SCH ×2 (04:43→15:30)
[2017-07-20 05:18] VITALS: BP 75/44
[2017-07-20 05:45] LABS: Hematocrit 38.8 % (36.0-46.0); Hemoglobin 12.9 g/dL (12.2-16.2); Mean Corpuscular Hemoglobin 32.3 pg (28.0-32.0); Mean Corpuscular Hgb Conc. 33.2 g/dL (32.0-36.0); Mean Corpuscular Volume 97.3 fL (80.0-100.0); Platelet Count (auto) 190 10^3/uL (140-450); Red Blood Cells 3.98 10^6/uL (4.0-5.20); Red Cell Distribution Width 14.7 % (11.8-14.3); White Blood Cell 5.5 10^3/uL (4.4-10.8)
[2017-07-20 06:08] LABS: Basophils % (manual) 0 (0.0-2.0); Blast Cells 0; Metamyelocytes % 0; Myelocytes % 0; Promyelocytes % 0; Reactive Lymphocytes 0
[2017-07-20 06:15] LABS: Albumin 2.2 g/dL (3.4-5.0); Calcium 6.9 mg/dL (8.5-10.1); Potassium 3.8 mmol/L (3.5-5.1)
[2017-07-20 06:18] LABS: BUN/Creatinine Ratio 7.4
[2017-07-20 06:20] LABS: Bilirubin, Total 0.4 mg/dL (0.2-1.0); Total Protein 4.7 g/dL (6.4-8.2)
[2017-07-20 06:50] LABS: Band Neutrophils % (manual) 1; Eosinophils % (manual) 2 (0-7); Lymphocytes % (manual) 52 (10.0-50.0); Monocytes % (manual) 6 (0-12)
[2017-07-20 09:00] VITALS: BP_SYST 153; BP_SYST 79; BP_DIAS 48; BP_DIAS 65
[2017-07-20] MEDS: TOPIRAMATE 25 MG TAB PO SCH ×2 (10:34→21:25)
[2017-07-20 12:00] VITALS: BP_SYST 124; BP_SYST 88; BP_DIAS 50; BP_DIAS 57
[2017-07-20] MEDS: clonazePAM 0.5 MG TAB PO PRN (19:52)
[2017-07-20 22:47] VITALS: BP_SYST 122; BP_SYST 87; BP_DIAS 49; BP_DIAS 52
[2017-07-21] MEDS: SODIUM CHLORIDE 0.9% 1,000 ML IV SCH ×2 (00:51→11:30)
[2017-07-21] MEDS: MORPHINE SULFATE 4 MG/ML SYR/VIAL IV PRN ×3 (01:38→10:59)
[2017-07-21] MEDS: diphenhdrAMINE HCL 25 MG CAP PO PRN ×3 (01:39→10:59)
[2017-07-21 04:23] VITALS: BP 84/57
[2017-07-21 09:00] VITALS: BP 81/46
== END 2017-07-21 12:55 | disposition home or self-care (01) | DRG 53 ==
LOC: ER 09:56 → EDBD 09:56 → OVERFLOW 09:57 → WEST WING 17:31
PROVIDERS: ADMIT Internal Medicine; ATTEND Internal Medicine
DX: G40.401 Other generalized epilepsy and epileptic syndromes, not intractable, with status epilepticus (principal); E44.0 Moderate protein-calorie malnutrition; F11.20 Opioid dependence, uncomplicated; E88.09 Other disorders of plasma-protein metabolism, not elsewhere classified; N20.0 Calculus of kidney; E86.0 Dehydration; E87.6 Hypokalemia; F41.9 Anxiety disorder, unspecified; F17.210 Nicotine dependence, cigarettes, uncomplicated; F32.9 Major depressive disorder, single episode, unspecified; G43.909 Migraine, unspecified, not intractable, without status migrainosus; Z79.899 Other long term (current) drug therapy; Z80.0 Family history of malignant neoplasm of digestive organs; Z82.49 Family history of ischemic heart disease and other diseases of the circulatory system; Z87.442 Personal history of urinary calculi; Z90.710 Acquired absence of both cervix and uterus; Z88.1 Allergy status to other antibiotic agents; Z68.21 Body mass index [BMI] 21.0-21.9, adult; Z88.5 Allergy status to narcotic agent; Z88.0 Allergy status to penicillin; Z88.8 Allergy status to other drugs, medicaments and biological substances; Z71.3 Dietary counseling and surveillance
CPT/HCPCS: 36415; 51702; 70450; 71045; 74176; 76775; 80048; 80053; 80307; 81001; 82550; 82607; 82746; 83735; 84425; 84443; 84484; 85007; 85025; 85027; 87081; 87493; 96361; 96374; 99291; J1885

== ENCOUNTER 2017-10-13 14:38 | Inpatient (IN) | payer MEDICAID ==
[~2017-10-13] VITALS: Ht 162.6 cm; Wt 53.4 kg
[~2017-10-13 14:38] MED LIST changes: +CLON1TAB PO; -CLON1TAB3 PO; -DICL-176 PO; -LEVE100020; -LEVE100020 PO; -MIRT30TA PO; -TOPI25TA32 PO; +TOPI50TA53 PO
[2017-10-13] MEDS ORDERED: SODIUM CHLORIDE 0.9% 1,000 ML IV ONE ×3 (14:56→18:45)
[2017-10-13] MEDS ORDERED: LEVETIRACETAM INJ 1,000 MG in D5W 5% 100 ML IV ONE (15:00)
[2017-10-13] MEDS ORDERED: LORazepam 2MG/ML-1ML VIAL IV ONE (15:00)
[2017-10-13 15:21] LABS: Basophils # (auto) 0 uL; Basophils % (auto) 0.4 % (0.0-2.0); Eosinophils # (auto) 0.3 uL; Hematocrit 46.4 % (36.0-46.0); Hemoglobin 15.9 g/dL (12.2-16.2); Lymphocytes # (auto) 2.9 uL; Lymphocytes % (auto) 37.5 % (10.0-50.0); Mean Corpuscular Hemoglobin 32.6 pg (28.0-32.0); Mean Corpuscular Hgb Conc. 34.3 g/dL (32.0-36.0); Monocytes # (auto) 0.4 uL; Monocytes % (auto) 5.5 % (0.0-12.0); Neutrophils % (auto) 52.6 % (37.0-80.0); Nucleated Red Blood Cells % 0.1 %; Platelet Count (auto) 286 10^3/uL (140-450); Red Blood Cells 4.89 10^6/uL (4.0-5.20); Red Cell Distribution Width 13.8 % (11.8-14.3); White Blood Cell 7.7 10^3/uL (4.4-10.8)
[2017-10-13 15:37] LABS: INR 0.98 (0.9-1.15); Partial Thromboplastin Time 25.9 sec (23.78-33.04); Prothrombin Time 10.5 sec (9.27-12.13)
[2017-10-13 15:45] LABS: Alanine Aminotransferase 37 U/L (13-56); Albumin 3.6 g/dL (3.4-5.0); Alkaline Phosphatase 63 U/L (45-117); Anion Gap 10 (5-15); Aspartate Aminotransferase 19 U/L (15-37); BUN/Creatinine Ratio 13.2; Bilirubin, Total 0.6 mg/dL (0.2-1.0); Blood Urea Nitrogen 12 mg/dL (7-18); Calcium 8.8 mg/dL (8.5-10.1); Carbon Dioxide 30 mmol/L (21-32); Chloride 101 mmol/L (98-107); GFR African American 89 mL/min; GFR Non-African American 74 mL/min; Glucose 91 mg/dL (74-106); Sodium 141 mmol/L (136-145); Total Protein 7.4 g/dL (6.4-8.2)
[2017-10-13 15:48] LABS: Potassium 2.9 mmol/L (3.5-5.1)
[2017-10-13] MEDS ORDERED: MIDAZOLAM HCL 5 MG/ML-1ML VIAL IV ONE (16:15)
[2017-10-13] MEDS ORDERED: AMMONIA 0.33 ML INHALANT IN ONE ×2 (16:17→16:30)
[2017-10-13] MEDS ORDERED: TEMAZEPAM 15 MG CAP PO PRN (17:00)
[2017-10-13] MEDS ORDERED: MORPHINE SULFATE 8mg/ml INJ SDV IV PRN (17:00)
[2017-10-13] MEDS ORDERED: IBUPROFEN 400 MG TAB PO PRN (17:00)
[2017-10-13] MEDS ORDERED: LEVETIRACETAM 500 MG TAB PO ONE (17:00)
[2017-10-13] MEDS ORDERED: NITROGLYCERIN 0.4 MG SL TAB SL PRN (17:00)
[2017-10-13] MEDS ORDERED: ACETAMINOPHEN 500 MG TAB PO PRN (17:00)
[2017-10-13] MEDS ORDERED: LORazepam 0.5 MG TAB PO PRN (17:00)
[2017-10-13] MEDS ORDERED: LACTULOSE 20Gm/30ML SOLN PO PRN (17:00)
[2017-10-13] MEDS: SOD CHL 0.9%/ KCL 40MEQ 1,000 ML IV SCH (17:34)
[2017-10-13 17:46] VITALS: BP 79/54
[2017-10-13] MEDS: KETOROLAC TROMETH 30 MG/ML 1ML VIAL IV PRN (17:48)
[2017-10-13] MEDS: POTASSIUM CHL 20MEQ/100ML 100 ML IV SCH ×3 (19:02→21:59)
[2017-10-13 20:30] VITALS: BP 89/54
[2017-10-13 21:02] LABS: Amylase 62 U/L (25-115); Lipase 97 U/L (73-393)
[2017-10-13] MEDS: clonazePAM 0.5 MG TAB PO SCH (21:15)
[2017-10-13] MEDS: TOPIRAMATE 25 MG TAB PO SCH (21:15)
[2017-10-13 22:00] VITALS: BP 89/54
[2017-10-13 22:31] LABS: Urine Bacteria NONE SEEN /hpf (None Seen); Urine Blood Negative /uL (Negative); Urine Mucus MODERATE (None Seen); Urine Specific Gravity 1.028 (1.001-1.035); Urine WBC 11 /hpf (0 - 5)
[2017-10-13 22:44] LABS: Amphetamine Screen, Urine NEGATIVE (NEGATIVE); Barbiturate Scree,Urine NEGATIVE (NEGATIVE); Benzodiazephine Screen, Urine POSITIVE (NEGATIVE); Cannabinoid Screen, Urine NEGATIVE (NEGATIVE); Cocaine Screen, Urine NEGATIVE (NEGATIVE); Opiate Scree,Urine NEGATIVE (NEGATIVE); Phencyclidine Screen, Urine NEGATIVE (NEGATIVE)
[2017-10-13] MEDS: LORazepam 2MG/ML-1ML VIAL IV PRN (23:24)
[2017-10-14] VITALS (7 sets, daily range): BP systolic 73–131; BP diastolic 46–52
[2017-10-14] MEDS: KETOROLAC TROMETH 30 MG/ML 1ML VIAL IV PRN ×2 (01:06→10:10)
[2017-10-14] MEDS: SOD CHL 0.9%/ KCL 40MEQ 1,000 ML IV SCH ×3 (03:12→23:00)
[2017-10-14] MEDS: clonazePAM 0.5 MG TAB PO SCH ×2 (06:00→15:02)
[2017-10-14] MEDS ORDERED: SODIUM CHLORIDE 0.9% 500 ML IV ONE (06:00)
[2017-10-14 08:29] LABS: BUN/Creatinine Ratio 16.9; Calcium 6.3 mg/dL (8.5-10.1)
[2017-10-14 08:41] LABS: Potassium 2.9 mmol/L (3.5-5.1)
[2017-10-14] MEDS ORDERED: POTASSIUM CHL 20 Meq TABLET PO ONE (10:00)
[2017-10-14] MEDS ORDERED: LEVETIRACETAM 500 MG TAB PO SCH (10:00)
[2017-10-14] MEDS: ENOXAPARIN SOD 40 MG/0.4 ML SYRINGE SC SCH (10:10)
[2017-10-14] MEDS: TOPIRAMATE 25 MG TAB PO SCH (10:10)
[2017-10-14] MEDS: NITROFURANTOIN (MONO) 100 mg CAP PO SCH ×2 (10:13→21:30)
[2017-10-14] MEDS: LORazepam 2MG/ML-1ML VIAL IV PRN (14:21)
[2017-10-14] MEDS ORDERED: KETOROLAC TROMETH 30 MG/ML 1ML VIAL IV PRN (14:45)
[2017-10-14] MEDS: ALPRAZolam 0.5 MG TAB PO SCH (21:30)
[2017-10-14] MEDS ORDERED: ONDANSETRON HCL 4 MG/2 ML VIAL IV PRN (22:45)
[2017-10-15 05:42] VITALS: BP 70/43
[2017-10-15] MEDS: ALPRAZolam 0.5 MG TAB PO SCH ×2 (06:14→14:00)
[2017-10-15 08:00] VITALS: BP 77/47
[2017-10-15] MEDS: SOD CHL 0.9%/ KCL 40MEQ 1,000 ML IV SCH (09:00)
[2017-10-15] MEDS: NITROFURANTOIN (MONO) 100 mg CAP PO SCH (11:41)
[2017-10-15] MEDS: ENOXAPARIN SOD 40 MG/0.4 ML SYRINGE SC SCH (11:41)
[2017-10-15 13:00] VITALS: BP 97/62
[2017-10-15 17:05] VITALS: BP 79/55
[2017-10-15 21:05] VITALS: BP 86/56
== END 2017-10-15 21:05 | disposition home or self-care (01) | DRG 53 ==
LOC: ER 14:38 → EDBD 14:38 → TELE 14:39 → TELE-CENTR 20:03
PROVIDERS: ADMIT Internal Medicine; ATTEND Internal Medicine
DX: G40.909 Epilepsy, unspecified, not intractable, without status epilepticus (principal); F11.20 Opioid dependence, uncomplicated; F44.5 Conversion disorder with seizures or convulsions; E87.6 Hypokalemia; F17.210 Nicotine dependence, cigarettes, uncomplicated; N20.0 Calculus of kidney; N39.0 Urinary tract infection, site not specified; F32.9 Major depressive disorder, single episode, unspecified; F41.9 Anxiety disorder, unspecified; G43.909 Migraine, unspecified, not intractable, without status migrainosus; Z84.89 Family history of other specified conditions; Z83.49 Family history of other endocrine, nutritional and metabolic diseases; Z81.8 Family history of other mental and behavioral disorders; Z79.899 Other long term (current) drug therapy; Z80.0 Family history of malignant neoplasm of digestive organs; Z82.49 Family history of ischemic heart disease and other diseases of the circulatory system; Z90.710 Acquired absence of both cervix and uterus; Z88.8 Allergy status to other drugs, medicaments and biological substances; Z88.1 Allergy status to other antibiotic agents; Z88.5 Allergy status to narcotic agent; Z88.0 Allergy status to penicillin
CPT/HCPCS: 36415; 36600; 70450; 80048; 80053; 80307; 81001; 82150; 82542; 82805; 83690; 84132; 84484; 85025; 85610; 85652; 85730; 87045; 87081; 87086; 87493; 87899; 96361; 96365; 96375; J1885; J2250; J2405; J3480; J7060

== ENCOUNTER 2017-12-25 16:30 | Emergency (ER) | payer MEDICAID ==
[~2017-12-25] VITALS: Ht 167.6 cm; Wt 58.1 kg
[~2017-12-25 16:30] MED LIST changes: +METO10TA3 PO; +MIRT30TA OR; +OXCA600T3 PO; +TRAM50TA2 PO
[2017-12-25 16:43] VITALS: BP 129/61
[2017-12-25 17:31] LABS: Basophils # (auto) 0 uL; Basophils % (auto) 0.4 % (0.0-2.0); Eosinophils # (auto) 0.1 uL; Eosinophils % (auto) 2.6 % (0.0-7.0); Hematocrit 36.4 % (36.0-46.0); Hemoglobin 12.3 g/dL (12.2-16.2); Lymphocytes # (auto) 2.3 uL; Lymphocytes % (auto) 46.5 % (10.0-50.0); Mean Corpuscular Hemoglobin 32.7 pg (28.0-32.0); Mean Corpuscular Hgb Conc. 33.8 g/dL (32.0-36.0); Monocytes # (auto) 0.4 uL; Neutrophils # (auto) 2.1 uL; Neutrophils % (auto) 41.5 % (37.0-80.0); Nucleated Red Blood Cells % 0.2 %; Platelet Count (auto) 239 10^3/uL (140-450); Red Blood Cells 3.76 10^6/uL (4.0-5.20)
[2017-12-25 17:51] LABS: Albumin 2.9 g/dL (3.4-5.0); Anion Gap 10 (5-15); Blood Urea Nitrogen 12 mg/dL (7-18); Calcium 7.5 mg/dL (8.5-10.1); Carbon Dioxide 23 mmol/L (21-32); Chloride 111 mmol/L (98-107); Glucose 86 mg/dL (74-106); Magnesium 2.3 mg/dL (1.6-2.6); Potassium 3.1 mmol/L (3.5-5.1); Sodium 144 mmol/L (136-145)
[2017-12-25 17:53] LABS: Alanine Aminotransferase 17 U/L (13-56); Aspartate Aminotransferase 8 U/L (15-37); BUN/Creatinine Ratio 14.5; GFR African American 99 mL/min; GFR Non-African American 82 mL/min
[2017-12-25 17:58] LABS: Alkaline Phosphatase 46 U/L (45-117); Bilirubin, Total 0.3 mg/dL (0.2-1.0)
== END 2017-12-26 01:00 | disposition left against medical advice (07) ==
LOC: EDBD 16:30 → ER 16:35
DX: R07.89 Other chest pain (principal); R06.02 Shortness of breath; Z53.21 Procedure and treatment not carried out due to patient leaving prior to being seen by health care provider
CPT/HCPCS: 36415; 80053; 83735; 84484; 85025; 93005

== ENCOUNTER 2018-08-06 10:38 | Inpatient (IN) | payer MEDICAID | END 2018-08-10 19:10 | disposition home or self-care (01) | LOC: TELE-WESTW 08-09 18:18 → ER 10:38 → OVERFLOW 13:53 → WEST WING 21:32 | DX: R55 Syncope and collapse (principal); N17.0 Acute kidney failure with tubular necrosis; I95.9 Hypotension, unspecified; J90 Pleural effusion, not elsewhere classified; N18.3 Chronic kidney disease, stage 3 (moderate); G40.909 Epilepsy, unspecified, not intractable, without status epilepticus; D72.829 Elevated white blood cell count, unspecified; E87.6 Hypokalemia; F32.9 Major depressive disorder, single episode, unspecified; F41.9 Anxiety disorder, unspecified ==

== ENCOUNTER 2018-08-22 11:56 | Emergency (ER) | payer MEDICAID ==
[~2018-08-22] VITALS: Ht 162.6 cm; Wt 49.9 kg
[2018-08-22 12:14] VITALS: BP 116/78
== END 2018-08-22 15:27 | disposition left against medical advice (07) ==
LOC: ER 12:12
DX: S02.621A Fracture of subcondylar process of right mandible, initial encounter for closed fracture (principal); F17.210 Nicotine dependence, cigarettes, uncomplicated; Z88.1 Allergy status to other antibiotic agents; Z88.0 Allergy status to penicillin; Z79.899 Other long term (current) drug therapy; Z90.710 Acquired absence of both cervix and uterus; W18.39XA Other fall on same level, initial encounter; Y93.89 Activity, other specified; Y99.8 Other external cause status; Y92.89 Other specified places as the place of occurrence of the external cause
CPT/HCPCS: 70110